=== PATIENT | female | born 1990 | race Caucasian/White ===

== ENCOUNTER 2022-07-23 13:45 | Outpatient (RCR) | payer BC, SELFPAY | END 2022-12-16 23:59 | disposition home or self-care (01) | PROVIDERS: PCP Family Medicine; Visit Provider Psychiatry & Neurology Neurology | DX: G43.109 Migraine with aura, not intractable, without status migrainosus (principal); Z51.89 Encounter for other specified aftercare | CPT/HCPCS: 97110; 97140; 97162 ==

== ENCOUNTER 2022-12-08 11:00 | Outpatient (RCR) | payer BC, SELFPAY | END 2023-02-17 08:46 | disposition home or self-care (01) | PROVIDERS: PCP Family Medicine; Visit Provider Family Medicine | DX: S50.12XD Contusion of left forearm, subsequent encounter (principal); Z51.89 Encounter for other specified aftercare | CPT/HCPCS: 97035; 97110; 97140; 97165; 97535; X5282 ==

== ENCOUNTER 2023-03-29 13:00 | Outpatient (RCR) | payer BC, SELFPAY | END 2023-07-27 23:59 | disposition home or self-care (01) | PROVIDERS: PCP Family Medicine; Visit Provider Family Medicine | DX: M25.522 Pain in left elbow (principal); S50.12XD Contusion of left forearm, subsequent encounter; M25.562 Pain in left knee; M25.561 Pain in right knee; R29.898 Other symptoms and signs involving the musculoskeletal system; Z51.89 Encounter for other specified aftercare | CPT/HCPCS: 97110; 97140; 97162; 97535 ==

== ENCOUNTER 2024-04-10 16:08 | Emergency (ER) | payer BC, SELFPAY ==
[2024-04-10 16:18] VITALS: BP 142/88; PULSE 94; RESP 18; TEMP 37.2; O2SAT 97; BMI 39.5
--- NOTE | 2024-04-10 17:49 | ED_ITS ---
HPI - General Adult General Date Seen: 04/10/24 Chief complaint: Unspecified Complaint, Adult Stated complaint: Upper L tooth infection Time Seen by Provider: 04/10/24 16:57 History of Present Illness HPI narrative: 34-year-old female presenting to the ER today for a tooth infection. She saw her dentist yesterday because the tooth with painful in the found infection. She was started amoxicillin yesterday. Today she has had increased swelling of her face up to her left eye. She has a past medical history of thyroid cancer, treated about a year ago, no longer on any treatment and thought to be and remission, Luis-Danlos syndrome, fibromyalgia, GERD, intense to have easy susceptibility to infections. However she has no known immune deficiency, diabetes. She has had some pain in her left maxillary premolar for the past month or 2. He had been present off and on. It gotten worse last week. She has been unable to see a dentist because most dentist do not take her form insurance. She was able to find a dentist who takes her insurance and saw her that dentist yesterday. She was told she has a dental infection and her dentist put her on amoxicillin 500 mg t.i.d.. She had 2 doses yesterday and 2 doses today but since then has noted increasing pain and new, increasing swelling involving her left cheek which is spread from her jaw all the way up to her lower eyelid. She is not having any fevers. No vomiting. No trouble chewing swallowing. She does have pain in her left upper jaw with chewing. Related Data Home Medications ?Medication ?Instructions ?Recorded ?Confirmed Daniela 04/10/24 Fish Oil 04/10/24 amitriptyline 25 mg tablet 25 mg PO QPM 04/10/24 04/10/24 amoxicillin 500 mg capsule mg PO 04/10/24 ashwagandha root extract 04/10/24 hydroxyzine HCl 25 mg tablet PO 04/10/24 levothyroxine 175 mcg tablet 175 mcg PO DAILY 04/10/24 04/10/24 propranolol 10 mg tablet 10 mg PO BID 04/10/24 04/10/24 rimegepant 75 mg disintegrating PO 04/10/24 tablet (Nurtec ODT) tizanidine 4 mg tablet 4 mg PO 3XD 04/10/24 04/10/24 Previous Rx's ?Medication ?Instructions ?Recorded clindamycin HCl 300 mg capsule 300 mg PO TID #30 caps 04/10/24 Allergies Allergy/AdvReac Type Severity Reaction Status Date / Time galcanezumab-gnlm Allergy Mild Anaphylaxis Verified 04/10/24 19:16 lactose Allergy Mild Abdominal Verified 04/10/24 19:16 Pain omeprazole Allergy Mild Anaphylaxis Verified 04/10/24 19:16 pantoprazole Allergy Mild Anaphylaxis Verified 04/10/24 19:16 PFSH PFS Social History Smoking Status: Unknown if ever smoked Do you use any of these nicotine containing products: None Second hand tobacco smoke exposure: No How often do you have a drink containing alcohol: never AUDIT-C Alcohol total score: 0 Non-prescribed substance use: denies use Exam Narrative: Exam Narrative: Constitutional: Appears well-developed and well-nourished. Alert. Conversant. Has visible swelling of her left cheek. Airway patent. Non toxic. HENT: Head: Atraumatic. Nose: Nose normal. Mouth/Throat: Oral mucosa is clear and moist. no trismus. Pharynx normal. Tongue normal. Lower jaw and submandibular tissues are normal. She is very sensitive with palpation of the maxillary left gums but I do not appreciate any palpable fluctuance or gingival abscess. Tonsils symmetric. No tonsillar enlargement, erythema, or exudate. Swelling of the left cheek without any palpable fluctuance there. Eyes: Conjunctivae normal. EOM normal. Pupils equal, round, and reactive to light. No scleral icterus. Neck: Normal range of motion. Neck supple. No tracheal deviation present. Cardiovascular: Normal rate, regular rhythm. No gallop. No friction rub. No murmur heard. Symmetric radial artery pulses Pulmonary/Chest: Effort normal. No stridor. No respiratory distress. No wheezes. No rales. No rhonchi . Musculoskeletal: RUE: Normal range of motion. No tenderness. No deformity LUE: Normal range of motion. No tenderness. No deformity RLE: Normal range of motion. No edema. No tenderness. No deformity LLE: Normal range of motion. No edema. No tenderness. No deformity Lymph: No cervical adenopathy. Neurological: Alert and oriented to person, place, and time. Normal strength. CN II-VII intact. No sensory deficit. GCS eye subscore is 4. GCS verbal subscore is 5. GCS motor subscore is 6. Normal coordination Skin: Skin is warm and dry. No rash noted. No pallor. Normal capillary refill. Psychiatric: Normal mood. Normal affect. Const: Vital Signs, click to edit/add: Vital Signs - 24 hr 04/10/24 16:18 Temperature 99.0 F Pulse Rate [Pulse Oximeter] 94 Respiratory Rate 18 Blood Pressure [Ri t Upper Arm] 142/88 H Pulse Oximetry 97 Oxygen Delivery Me thod Room Air Course Vital Signs Vital signs: Initial Vital Signs Temperature 99.0 F 04/10/24 16:18 Temperature Source Temporal Artery Scan 04/10/24 16:18 Pulse Rate 94 04/10/24 16:18 Pulse Rhythm Regular 04/10/24 16:18 Respiratory Rate 18 04/10/24 16:18 Blood Pressure 142/88 H 04/10/24 16:18 Blood Pressure Mean 106 H 04/10/24 16:18 Blood Pressure Position Sitting 04/10/24 16:18 Pulse Oximetry 97 04/10/24 16:18 Oxygen Delivery Method Room Air 04/10/24 16:18 Vital Signs Temperature 99.0 F 04/10/24 16:18 Pulse Rate 94 04/10/24 16:18 Respiratory Rate 18 04/10/24 16:18 Blood Pressure 142/88 H 04/10/24 16:18 Pulse Oximetry 97 04/10/24 16:18 Oxygen Delivery Method Room Air 04/10/24 16:18 Temperature 99.0 F 04/10/24 16:18 Pulse Rate 94 04/10/24 16:18 Respiratory Rate 18 04/10/24 16:18 Blood Pressure 142/88 H 04/10/24 16:18 Pulse Oximetry 97 04/10/24 16:18 Oxygen Delivery Method Room Air 04/10/24 16:18 Medications Administered Medications: Discontinued Medications Generic Name Dose Route Start Last Admin Trade Name Freq PRN Reason Stop Dose Admin Hydrocodone Bitart/Acetaminophen 1 tab 04/10/24 18:10 04/10/24 18:34 Hydrocodone-Acetamin 5-325 Mg 1 Tab PO 04/10/24 18:11 Not Given ONCE ONE Clindamycin HCl 300 mg 04/10/24 18:11 04/10/24 18:33 Clindamycin 150 Mg Capsule PO 04/10/24 18:12 300 mg ONCE ONE Administration Oxycodone HCl 5 mg 04/10/24 18:30 04/10/24 18:33 Oxycodone 5 Mg Tablet PO 04/10/24 18:31 5 mg ONCE ONE Administration Medical Decision Making MDM Narrative Medical decision making narrative: This patient presents with a a toothache affecting her left maxillary premolar that is been present for a month, now getting worse for the past several days with new swelling of her left cheek. Clinical presentation is consistent with left facial cellulitis. Differential would also include buccal space abscess, allergic reaction, bony erosive disease, periapical abscess, among others. Clinically there is no abscess detected around the tooth amenable to incision and drainage. However we did obtain CT scan to look for buccal space abscess given the amount of cheek swelling she has. CT scan does say that there may be a small subperiosteal abscess. I am not able to appreciate this clinically and therefore not able to drain it here in the ER. There is no evidence of buccinator/canine space infections, or Steve's angina. There are no posterior pharyngeal space infections detected. Will have her switch from amoxicillin to clindamycin. First dose administered here in the ER. Prescription for Percocet for pain (opiate and sedation precautions reviewed) through [facility] tablets. Follow up with a dentist/day haul or farm charter bus driver in the coming days is indicated for further work up and treatment. Instructions for return to the ER were reviewed with the patient. Lab Data Labs: Lab Results 04/10/24 Range/Units 18:24 WBC 10.73 (4.50-11.00) K/uL RBC 4.32 (4.00-5.20) m/uL Hgb 12.9 (12.0-16.0) gm/dL Hct 38.4 (33.0-51.0) % MCV 89 (80-100) fL MCH 30 (26-34) pg MCHC 34 (32-36) gm/dL RDW Coeff of Chinedu 12.3 (11.5-15.5) % Plt Count 288 (140-440) K/uL Neut % (Auto) 71.5 (42.0-72.0) % Lymph % (Auto) 19.5 L (20-44) % [place] % (Auto) 7.6 (0.0-11.0) % Eos % (Auto) 1.0 (0.0-7.0) % Baso % (Auto) 0.2 (0.0-3.0) % Neut # (Auto) 7.67 H (1.7-7.0) K/uL Lymph # (Auto) 2.10 (0.90-2.90) K/uL [place] # (Auto) 0.80 (0.00-0.90) K/UL Eos # (Auto) 0.11 (0.00-0.50) K/uL Baso # (Auto) 0.02 (0.00-0.30) K/uL Abs Immat Gran (auto) 0.02 (0.00-0.30) K/uL Imm/Tot Granulo (auto) 0.2 % Sodium 135 (135-149) mmol/L Potassium 4.4 (3.6-5.1) mmol/L Chloride 101 (96-114) mmol/L Carbon Dioxide 23 (20-32) mmol/L Anion Gap 11 (7-15) mEq/L BUN 11 (5-24) mg/dL Creatinine 0.7 (0.5-1.5) mg/dL Estimated Creat Clear 105.01 Estimated GFR 116 ml/min Glucose 99 (60-115) mg/dL Calcium 8.9 (8.4-10.6) mg/dL HCG, Qual Negative (Negative) Imaging Data CT neck with contrast: Attestation: I have reviewed the pertinent imaging results. Radiologist's impression: Impression: 1. Small subperiosteal abscess anterior to the left maxilla communicating with a periapical lucency about the left 2nd maxillary premolar tooth. 2. Mild diffuse infiltration of the soft tissues in the overlying face and periorbital region. 3. Small fluid level in the left maxillary sinus indicating acute sinus disease. 4. Poor visualization of the thyroid gland which may be surgically absent. Discharge Plan Discharge Clinical Impression: Dental infection, Cellulitis of face Instructions: Dental Abscess (ED), Cellulitis (ED) Additional Instructions: As we discussed, stop the amoxicillin and start the new antibiotic (called clindamycin). Take your next dose tomorrow morning. Monitor your face carefully. If you have worsening swelling, high fevers, trouble opening and closing your mouth, or other worsening symptoms, please see your dentist or come back to the ER right away. Use caution with pain killers such as Percocet because they cause drowsiness, dizziness, constipation, and can be addictive. Do not drive a car or operate machinery for 6 hours after taking Percocet. Prescriptions: New clindamycin HCl 300 mg capsule 300 mg PO TID Qty: 30 0RF No Action amoxicillin 500 mg capsule PO levothyroxine 175 mcg tablet 175 mcg PO DAILY tizanidine 4 mg tablet 4 mg PO 3XD propranolol 10 mg tablet 10 mg PO BID amitriptyline 25 mg tablet 25 mg PO QPM hydroxyzine HCl 25 mg tablet PO Nurtec ODT 75 mg tablet,disintegrating PO Daniela ashwagandha root extract Fish Oil Follow Up/Referrals: Estrella Otto DO [Staff Physician] - Stand Alone Forms: [employer] Medical Info Instructions
--- NOTE | 2024-04-10 18:10 | CRLHL7_ITS ---
For Patients: As a result of the Century Cures Act, medical imaging exams and procedure reports are released immediately into your electronic medical record. You may view this report before your referring provider. If you have questions, please contact your health care provider. Indication: Left maxillary tooth ache, left cheek swelling. Technique: Contrast-enhanced CT of the neck with multiplanar reconstruction. 120 cc Isovue 370 iodinated intravenous contrast was utilized. Comparison: None available. Findings: Small subperiosteal abscess anterior to the left maxilla measuring up to 1.8 cm (series 3, image 21), likely extending from a periapical lucency about the left 2nd maxillary premolar tooth (series 3, image 25). Mild diffuse infiltration of the soft tissues in the overlying face and periorbital region. No suspicious mucosal based mass or enhancement. No pathologically enlarged cervical lymph nodes. Normal parotid and submandibular glands. The thyroid gland is not well visualized and may be surgically absent. Clear lung apices. Unremarkable osseous structures. The orbits and imaged intracranial structures are within normal limits. A small fluid level is noted in the left maxillary sinus. Multiple maxillary retention cysts are noted. Impression: 1. Small subperiosteal abscess anterior to the left maxilla communicating with a periapical lucency about the left 2nd maxillary premolar tooth. 2. Mild diffuse infiltration of the soft tissues in the overlying face and periorbital region. 3. Small fluid level in the left maxillary sinus indicating acute sinus disease. 4. Poor visualization of the thyroid gland which may be surgically absent. Please note that all CT scans at this facility use dose modulation, iterative reconstruction, and/or weight-based dosing when appropriate to reduce radiation dose to as low as reasonably achievable. Dictated by Yeison Toscano MD @ 04/10/2024 8:10:54 PM (Electronically Signed)
--- OUTSIDE RECORDS SUMMARY | 2024-04-10 18:21 | XMS_ITS | Referral Summary ---
Author Organization [facility] Address [address] [place] [id number] Phone Care Team Providers Care Glassware Selector Name Role Phone Unavailable Primary Care Provider Unavailabl e Source Comments [employer] is fully rolled out on [email or web address]. Last update 11/01/08.[employer] Allergies Active Allergy Reactions Criticality Noted Date Comments Omeprazole Shortness of Breath High 09/28/2023 Social History Tobacco Use Types Packs/Day Years Used Date Smoking Tobacco: Never Smokeless Tobacco: Never Tobacco Cessation:Counseling Given: Not Answered Alcohol Use Standard Drinks/Week Comments Never 0 (1 standard drink = 0.6 oz pur e alcohol) Comments Unknown Sex and Gender Information Value Date Recorded Sex Assigned at Female 07/12/2023 3:33 PM [employer] Legal Sex Female 3:11 PM [employer] Gender Identity Female 07/12/2023 3:33 PM [employer] Sexual Orientation Straight 07/12/2023 3: 33 PM [employer] Last Filed Vital Signs Vital Sign Reading Time Taken Comments Blood Pressure 105/66 09/28/2023 11:46 AM CDT Pulse 57 09/28/2023 11:46 AM CDT Temperature 36.3 ??C (97.4 ??F) 09/28/2023 11:46 AM C DT Respiratory Rate - - Oxygen Saturation - - Inhaled Oxygen Concentration - - Weight 112.5 kg (248 lb) 09/28/2023 11:46 AM CDT Height 161.7 cm (5' 3.66) 09/28/2023 11:46 AM C DT Body Mass Index 43.02 09/28/2023 11:46 AM CDT Plan of Treatment Not on file Insurance [facility]
--- OUTSIDE RECORDS SUMMARY | 2024-04-10 18:21 | XMS_ITS | Clinical Summary ---
Author Organization [facility] Address [address] [place] [address] Care Team Providers Care Hydraulic Punch Press Operator Name Role Phone Mariana Bryan DO Primary Care Provider [phone] Wan Syed MD Unavailable [phone] Allergies Active Allergy Reactions Criticality Noted Date Comments Cat Dander Itching,Runny Nose 1989 Dust/Dust Mites (Sammy) Itching,Runny Nose 2021 Galcanezumab-Gnlm Hives,Itching,Rash 07/09/2022 Lactase Vomiting 02/16/2017 Gi upset. Lactose Abdominal pain,Diarrhea,Hives,Rash,Vom iting 05/18/2022 Omeprazole Shortness of breath,Difficulty breathing 01/23/2020 Pantoprazole Shortness of breath,Difficulty breathing 06/30/2020 Pollen Extracts Hives,Itching,Runny Nose 2014 Year long Medications Medication Sig Dispensed Refills Start Date End Date Status budesonide, conc: 0.5mg/2mL, (PULMICORT) 0.5 mg/2 mL Inhl nebulizer suspension Inhale 2 mL (0.5 mg) twice a day. 04/28/2022 Active Cholecalciferol, Vitamin D3, 50 mcg (2,000 unit) oral capsule Take 2,000 Units by mouth Daily. 03/02/2022 Active famotidine (PEPCID) 20 mg oral tablet 03/11/2020 Active fexofenadine (KARLOS ALLERGY) 180 mg oral tablet 06/12/2001 Active fluticasone (FLONASE) 50 mcg/actuation nasal spray Instill 1 spray into each nostril Daily. 05/09/2020 Active hydrOXYzine HCl (ATARAX) 25 mg oral tablet Take by mouth. 09/12/2021 Active albuterol-ipratropiu m, conc: 3-0.5mg/3mL, (DUO-NEB) Inhl nebulizer solution Nebulize 3 mL. 04/10/2022 Ac tive lysine 1,000 mg oral Tab 09/18/2019 Active Magnesium Oxide 250 mg magnesium oral Tab Take 250 mg by mouth Daily. 03/02/2022 Active tiZANidine (ZANAFLEX) 4 mg oral tabletIndications:Ce rvicalgia,Myofascial pain TAKE ONE-HALF TABLET BY MOUTH AT BEDTIME FOR 7 DAYS, THEN TAKE ONE TABLET AT BEDTIME 30 tablet 3 07/10/2023 Active propranoloL (INDERAL) 10 mg oral tablet Take 1 tablet (10 mg) by mouth twice a day. 02/05/2023 Active mirtazapine (REMERON) 7.5 mg oral tablet Take 1 tablet (7.5 mg) by mouth at bedtime. 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 Allen ([facility]) S/P thyroidectomy 11/02/2022 Other acute postprocedural pain 05/18/2022 S/P lumbar spinal fusion 05/18/2022 Irritable bowel syndrome 01/08/2022 Failed back syndrome of lumbar spine 12/15/2021 Absence of pigment in hair 02/01/2020 Depressive disorder 09/29/2011 Fibromyalgia 09/29/2011 Myalgia 09/29/2011 Overview (05/18/2022): Myalgia and myositis, unspecified Gastritis 01/22/2011 Displacement of lumbar inter vertebral disc without myelopathy 04/18/2009 Spondylolisthesis, grade 2 04/18/2009 Spondylolysis 04/18/2009 Allergic rhinitis 12/06/2008 Hypothyroidism 08/31/2006 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 Encounters Date Type Department Care Team Description 03/12/2024 Community Care Management [facility] [address] [place] [address] [place] [address] Kalyani Cordova 03/08/2024 9:45 AM CDT Office Visit [facility] - [address] [place] [address] Wan ySed MD Intractable chronic migraine with aura and without status migrainosus (Primary Dx); Neck pain from Last 3 Months Immunizations Name Administration Dates Next Due HPV Quadrivalent 12/07/2013,10/04/2012, 3 Influenza (Fluzone MDV 2012-) 6-35 Mos 011 Pfizer 12+ Yrs Bivalent COVI D Vaccine (finn cap) 03/04/2022 SPIKEVAX (Moderna) 12+ Yrs M onovalent COVID Vaccine (credit product analyst) 05/19/2021,09/21/2020,08/24/2020 Td adult absorbed PF (2 Lf) 10/16/2002 Tdap 01/29/2021,01/20/2011 Family History Medical History Relation Comments Asthma Father Diabetes Father High Blood Pressure Father High Cholesterol Father Thyroid Disease Father Alzheimer's Disease Maternal Grandfather Heart Disease Maternal Grandfather High Blood Pressure Maternal Grandfather Heart Disease Maternal Grandmother High Blood Pressure Maternal Grandmother Non-Hodgkins Lymphoma Maternal Grandmother Asthma Mother Migraines Mother Skin Melanoma Mother High Blood Pressure Paternal Grandfather Lung Cancer Paternal Grandfather Diabetes Paternal Grandmother High Blood Pressure Paternal Grandmother Lung Cancer Paternal Grandmother Migraines Paternal Grandmother Skin Melanoma Paternal Grandmother Asthma Sister Migraines Sister Relation Status Comments Father Alive Maternal Grandfather Maternal Grandmother Mother Alive Paternal Grandfather Paternal Grandmother Sister Social History Tobacco Use Types Packs/Day Years Used Date Smoking Tobacco: Former Cigarettes Q uit: 2015 Smokeless Tobacco: Never Tobacco Cessation:Counseling Given: No Alcohol Use Standard Drinks/Week Comments Not Currently 0 (1 standard drink = 0.6 oz pur e alcohol) Sex and Gender Information Value Date Recorded Sex Assigned at Female 05/10/2022 2:08 PM ORDER CLERK Gender Identity Female 05/10/2022 2:08 PM ORDER CLERK Sexual Orientation Straight 05/10/2022 2: 08 PM ORDER CLERK Last Filed Vital Signs Vital Sign Reading Time Taken Comments Blood Pressure 122/82 05/18/2022 2:10 PM ORDER CLERK Pulse 80 05/18/2022 2:10 PM ORDER CLERK Temperature - - Respiratory Rate 14 09/23/2023 11:04 AM CDT Oxygen Saturation - - Inhaled Oxygen Concentration - - Weight 111.1 kg (245 lb) 09/23/2023 11:04 AM CDT Height 167.6 cm (5' 6) 09/23/2023 11:04 AM CDT Body Mass Index 39.54 09/23/2023 11:04 AM CDT Plan of Treatment Health Maintenance Due Date Last Done Comments Diabetes Screening 1989 Pap Smear 1989 Anxiety Screening (FREDDY-2) 1990 Depression Follow-Up (PHQ-9) 1990 COVID-19 Vaccine (5 - 2023-2 5 season) 2024 03/04/2022, 05/19/2021, 09/21/2020, Additional history exists Influenza Vaccine (#1) 2024 05/18/2011 Thyroid-Stimulating Hormone (TSH) 07/05/2024 07/05/2023, 02/22/2022, 07/30/2021, Additional history exists Adult Tetanus Booster 01/29/2031 01/29/2021 , 01/20/2011, 10/16/2002 RSV Vaccines (1 - 1-dose 75+ series) 02/03/2064 Hepatitis C Screening Completed 12/30/2021 Pneumococcal <65 Completed 03/21/2023 Care Teams Hydraulic Punch Press Operator Relationship Specialty Start Date End Date Mariana Bryan DO [address] [place] [address] PCP - General Family Medicine - 02/25/22 Wan Syed MD [address] [facility] [address] [place] [address] Neurology 04/02/22
--- OUTSIDE RECORDS SUMMARY | 2024-04-10 18:21 | XMS_ITS | Clinical Summary ---
Author Organization [employer] [facility] Address [place], [place] [address] Care Team Providers Care Blow Mold Machine Operator Name Role Phone Mariana Bryan Primary Care Provider [phone] Johnna Ram DIESEL RETROFIT DESIGNER Unavailable [phone] Allergies Active Allergy Reactions Criticality Noted Date Comments Cat Dander Itching,Runny Nose 1989 Lactase GI Upset 02/16/2017 Gi upset. Dust Mites Itching,Runny Nose 1989 Galcanezumab-Gnlm Hives 07/09/2022 Lactose Diarrhea,Nausea And Vomiting 014 Omeprazole Respiratory Distress ,Shortness Of Breath 01/23/2020 Pantoprazole Respiratory Distress ,Shortness Of Breath 06/30/2020 Pollen Extracts Runny Nose 07/02/2014 Year long Medications Medication Sig Dispensed Refills Start Date End Date Status fexofenadine (KARLOS) 180 mg tablet TAKE ONE TABLET BY MOUTH EVERY DAY 30 tablet 5 11/28/19 11 Active famotidine (PEPCID) 20 mg tabletIndications:Hi story of gastroesophageal reflux (GERD) Take 1 tablet by mouth 2 times daily. 180 tablet 3 04/30/20 19 Active ibuprofen (AdviL) 200 mg tablet 600 mg every four hours daily 0 03/02/20 22 Active aspirin-acetaminophe n-caffeine (Excedrin) 250-250-65 mg Take 1 Tablet by mouth every 6 hours if needed for Headache. Max acetaminophen dose: 4000mg in 24 hrs. 0 03/02/20 22 Active albuterol (PROVENTIL) 0.083 % neb solutionIndications: Cough, unspecified type,Pneumonia due to infectious organism, unspecified laterality, unspecified part of lung Inhale 3 mL (2.5 mg) via a nebulizer every 4 hours if needed for Cough. 360 mL 04/28/20 22 Active albuterol-ipratropiu m (DUONEB) (2.5-0.5 mg) in 3 mL NEBULIZATION solutionIndications: Pneumonia of left upper lobe due to infectious organism Inhale 3 mL via a nebulizer 4 times daily if needed for Shortness Of Breath or Wheezing. 180 mL 11 04/28/20 22 Active tiZANidine (ZANAFLEX) 4 mg tablet 05/18/20 22 Active triamcinolone (ARISTOCORT; KENALOG) 0.1 % creamIndications:Con tact dermatitis due to drugs in contact with skin, unspecified contact dermatitis type Apply topically to affected area(s) three times daily. 80 g 06/09/19 23 Active albuterol HFA (PRO-AIR; VENTOLIN; PROVENTIL) 90 mcg/actuation inhalerIndications:C hronic cough Inhale 1-2 Puffs by mouth every 4 hours if needed for Shortness Of Breath or Wheezing. 1 Each 06/09/19 23 Active ashwagandha root extract 300 mg cap Take 2 Capsules by mouth. 0 01/22/20 23 Active fluticasone (50 mcg per actuation) nasal solution (FLONASE)Indications :Hayfever USE 1 SPRAY INTO THE AFFECTED NOSTRIL(S) ONCE DAILY 48 g 2 03/30/20 23 Active magnesium oxide 250 mg magnesium tabletIndications:Ot her chronic pain Take 1 Tablet (250 mg) by mouth once daily. 90 Tablet 3 04/04/20 23 Active riboflavin, vitamin B2, (VITAMIN B2) 100 mg tabletIndications:He adache, chronic daily Take 4 Tablets (400 mg) by mouth once daily. 360 Tablet 3 05/24/20 23 Active levothyroxine (SYNTHROID) 175 mcg tabletIndications:Hy pothyroidism due to Mami's thyroiditis Take 1 Tablet (175 mcg) by mouth once daily. 90 Tablet 3 07/07/19 24 Active cholecalciferol (Dialyvite Vitamin D) 5,000 unit capsuleIndications:V itamin D deficiency Take 1 capsule by mouth once daily with food. 90 Capsule 2 10/27/19 24 Active rimegepant (NURTEC) 75 mg orally disintegrating tablet Take 75 mg by mouth once daily if needed for Headache. 11/18/19 24 Active amitriptyline (ELAVIL) 25 mg tabletIndications:Po lyarthralgia,Fibromy algia Take 1 Tablet (25 mg) by mouth once daily. 60 Tablet 1 03/13/20 24 Active hydrOXYzine HCL (ATARAX) 25 mg tabletIndications:Ge neralized anxiety disorder TAKE ONE TABLET BY MOUTH EVERY 6 HOURS IF NEEDED FOR ANXIETY 90 Tablet 1 03/22/20 24 Active propranoloL (INDERAL) 10 mg tabletIndications:PO TS (postural orthostatic tachycardia syndrome) TAKE ONE TABLET BY MOUTH TWICE A DAY 180 Tablet 03/22/20 24 Active propranoloL (INDERAL) 10 mg tabletIndications:PO TS (postural orthostatic tachycardia syndrome) Take 1 Tablet (10 mg) by mouth two times daily. 180 Tablet 3 03/21/20 23 024 Discontinued hydrOXYzine HCL (ATARAX) 25 mg tabletIndications:Ge neralized anxiety disorder Take 1 Tablet (25 mg) by mouth every 6 hours if needed for Anxiety. 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 Acute postoperative pain Acute postoperative abdominal pain S/P lumbar spinal fusion Resolved Problems Problem Noted Date Diagnosed Date Resolved Date ASCUS of cervix with negative high risk HPV 06/01/2016 02/19/2021 Overview (06/14/2016): 06/01/2016 - Cotesting in 3 years (DUE: 05/2019) Alcohol abuse, continuous 02/29/2008 Depressive disorder, not elsewhere classified 08/16/2022 Encounters Date Type Department Care Team Description 04/08/2024 Travel 03/28/2024 11:30 AM CDT Orders Only [facility] [address] [place] [address] Lab 03/28/2024 Telephone [facility] [id number] [place] [address] Aurelio Aragon MD ACC Order Request (referral needs update.) 03/28/2024 Travel 03/27/2024 Travel 03/26/2024 1:00 PM CDT Procedure Only [facility] [address] [place] [address] Zaria Ridley L Ac Acupuncture 03/25/2024 Travel 03/20/2024 12:00 PM CDT Ancillary Procedure [facility] [address] [place] [address] 03/19/2024 Refill [facility] [address] [place] [address] Mariana Bryan DO Refill Request (Hydroxyzine Hcl, Propranolol) 03/19/2024 Travel 03/19/2024 Orders Only [facility] [id number] [place] [address] Aurelio Aragon MD <No scans attached> 03/15/2024 1:00 PM CDT Procedure Only [facility] [address] [place] [address] Zaria Ridley L Ac Acupuncture 03/15/2024 Travel 03/13/2024 3:00 PM CDT Ancillary Procedure [facility] [address] [facility] [address] [place] [address] 03/13/2024 2:55 PM CDT Ancillary Procedure [facility] [address] [facility] [address] [place] [address] 03/13/2024 2:50 PM CDT Ancillary Procedure [facility] [address] [facility] [address] [place] [address] 03/13/2024 1:30 PM CDT Office Visit [facility] [address] [place] [address] Aurelio Aragon MD Consult 03/13/2024 Travel 03/12/2024 Travel 03/11/2024 Travel 03/07/2024 9:45 AM CDT Ancillary Procedure [facility] [address] [place] [address] 03/06/2024 Travel 03/05/2024 Travel 03/02/2024 11:00 AM CDT Telemedicine [facility] [address] [facility] [address] [place] [address] Johnna Ram NP Follow Up (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/Vitals is not taking) 03/01/2024 Travel 02/27/2024 1:00 PM CDT Procedure Only [facility] [address] [place] [address] Zaria Ridley L Ac Acupuncture 02/27/2024 Travel 02/26/2024 Travel 02/23/2024 1:15 PM CDT Nurse/Clinic Staff Only [facility] [address] [place] [address] Immunization/Injec tion (DEPO-PROVERA INJECTION ) 02/23/2024 Travel 02/20/2024 1:00 PM CDT Procedure Only [facility] [address] [facility] [place] [address] Zaria Ridley L Ac Acupuncture 02/20/2024 Travel 02/16/2024 5:00 PM CDT Telemedicine [facility] [address] [facility] [address] [place] [address] Chelle Green, EDENILSON Follow Up; Telehealth 02/16/2024 Travel 02/12/2024 Travel 02/09/2024 1:30 PM CDT Procedure Only [facility] [address] [place] [address] Zaria Ridley L Ac Acupuncture 02/09/2024 Travel 2024 12:47 PM CDT - 2024 11:59 PM CDT Hospital Encounter [facility] [place] [address] [facility] [address] [place] [address] Nena Roque MBBS Guist, Angela M, PT Pelvic floor dysfunction (Primary Dx); Pelvic pain 2024 Travel 01/23/2024 Online Questionnaire [facility]Vis[facility] [address] [place] [address] Davy Rowell MD 01/16/2024 Travel 01/12/2024 1:00 PM CDT Procedure Only [facility] [address] [facility] [address] Zaria Ridley L Ac Acupuncture 01/12/2024 Travel 01/09/2024 Telephone [facility] [address] [place] [address] Mariana Bryan DO Letter from Last 3 Months Immunizations Name Administration Dates Next Due COVID-19 vaccine (Pfizer-Bio NTech 30mcg/0.3mL) 12YO+ BIVALENT PF, MDV 03/03/2022 Human Papilloma Virus Vaccine 12/07/2013, 013,08/01/2012 Influenza, High-dose Inactivated 05/18/2011 Influenza, IIV3 (Age >=3 years) 05/18/2011 Pneumococcal Conj 20-valent (Prevnar 20) 023 Td (Age >=7 Years) 10/16/2002 Tdap 01/29/2021,01/20/2011 Family History Medical History Relation Name Comments Allergies Brother Asthma Brother Psychiatric illness Brother Depressi on Allergies Father Asthma Father Cancer-breast Maternal Aunt Unknown Maternal Grandfather Unknown Maternal Grandmother Allergies Mother Asthma Mother Other Mother skin cancer Psychiatric illness Mother Depressi on and Anxiety Thyroid Disease Mother Unknown Paternal Grandfather Unknown Paternal Grandmother breast cancer Allergies Sister Asthma Sister Psychiatric illness Sister Depressi on Anesthesia Problem No Family History Blood Disease No Family History Relation Name Status Comments Brother Father Alive Maternal Aunt Maternal Grandfather Maternal Grandmother Mother Alive Paternal Grandfather Paternal Grandmother Sister Social History Tobacco Use Types Packs/Day Years Used Date Smoking Tobacco: Former Cigarettes 0.5 3 0 09/27/2005 - 09/27/2008 Smokeless Tobacco: Never Tobacco Cessation:Counseling Given: No Comments:second hand exposure noted 04/07/2019 Alcohol Use Standard Drinks/Week Comments Not Currently 0 (1 standard drink = 0.6 oz pur e alcohol) 1x per year PHQ-2 Answer Date Recorded PHQ-2 TOTAL SCORE 4 07/01/2023 Social Connections Answer Date Recorded Do you often feel lonely or isolated from those around you? 4 06/27/2023 Financial Resource Strain Answer Date R ecorded Difficulty of Paying Living Expenses 2 06/27/2023 Difficulty of Paying Living Expenses 1 06/27/2023 Food Insecurity Answer Date Recorded Do you worry your food will run out before you are able to buy more? 2 06/27/2023 Transportation Needs Answer Date Record ed Does lack of transportation keep you from medica l appointments? 1 06/27/2023 Does lack of transportation keep you from work, meetings or getting things that you need? 1 06/27/2023 Housing Stability Answer Date Recorded What is your housing situation today? 1 06/27/2023 Sex and Gender Information Value Date Recorded Sex Assigned at Female 03/28/2020 2:51 PM CDT Gender Identity Female 03/28/2020 2:51 PM CDT Sexual Orientation Straight 03/28/2020 2: 51 PM CDT Obstetrics History Para Term AB IAB SAB Ectopic Multiple Livin g Live Births 0 0 0 0 0 0 0 0 0 0 Last Filed Vital Signs Vital Sign Reading Time Taken Comments Blood Pressure 120/88 03/13/2024 1:24 PM CDT Pulse 78 03/13/2024 1:24 PM CDT Temperature 36.5 ??C (97.7 ??F) 05/04/2023 1:09 PM CS T Respiratory Rate 14 05/04/2023 1:09 PM LABEL MACHINE OPERATOR Oxygen Saturation 98% 03/13/2024 1:24 PM CDT Inhaled Oxygen Concentration - - Weight 112.4 kg (247 lb 12.8 oz) 03/13/2024 1:24 PM CDT Height 166.8 cm (5' 5.67) 03/13/2024 1:24 PM CD T Body Mass Index 40.4 03/13/2024 1:24 PM CDT Plan of Treatment Upcoming Encounters Date Type Department Care Team (Late st Contact Info) Description 04/16/2024 10:00 AM LABEL MACHINE OPERATOR Procedure Only [facility] [address] [place] [address] Zaria Ridley L Ac [address] [place] [address] 04/17/2024 1:00 PM LABEL MACHINE OPERATOR Office Visit [facility] [address] [place] [address] [place] [address] [place] [address] [place] [address] 04/23/2024 1:00 PM LABEL MACHINE OPERATOR Procedure Only [facility] [address] [place] [address] Zaria Ridley L Ac [address] [place] [address] 05/03/2024 1:30 PM LABEL MACHINE OPERATOR Telemedicine [facility] [address] [place] [phone] Chelle Green, DIESEL RETROFIT DESIGNER [address] [facility] [address] [place] [address] 05/07/2024 1:00 PM LABEL MACHINE OPERATOR Procedure Only [facility] [address] [place] [address] Zaria Ridley L Ac [address] [place] [address] 05/14/2024 1:00 PM LABEL MACHINE OPERATOR Procedure Only [facility] [address] [place] [address] Zaria Ridley L Ac [address] [place] [address] 05/21/2024 1:00 PM LABEL MACHINE OPERATOR Procedure Only [facility] [address] [place] [address] Zaria Ridley L Ac [address] [place] [address] 05/28/2024 1:00 PM LABEL MACHINE OPERATOR Procedure Only [facility] [address] [place] [address] Zaria Ridley L Ac [address] [place] [address] Scheduled Procedures Name Priority Associated Diagnoses Date/Ti me SURGICAL PROCEDURE (TYPE PRO CEDURE DESCRIPTION BELOW) Other chronic pain Health Maintenance Due Date Last Done Comments COVID-19 vaccine series ( season) 2024 03/03/2022, 05/19/2021, 09/21/2020, Additional history exists Influenza for age 9-49 01/29/2024 05/18/2011 Depression screening for age 12+ 07/05/2024 07/05/2023, 07/04/2023, 07/01/2023, Additional history exists BMI (ht and wt on same day) for age 18+ 03/13/2025 03/13/2024, 07/01/2023, 04/13/2023, Additional history exists Pap test for age 21-65 01/29/2026 , 01/29/2021, 06/01/2016, Additional history exists Tetanus booster 01/29/2031 01/29/2021, 12/29, 10/16/2002 HIV for age 15-65 Completed 01/29/2021 Tdap Completed 01/29/2021, 01/20/2011 Pneumococcal series for age 6-64 Aged Out 03/21/2023 No longer eligible based on patient's age to complete this topic Hepatitis C screening for age 18-79 Completed 03/13/2024, 12/30/2021 Medical Devices Implanted Type Area Regional Sales Associate Device Identifier Shelf Expiration Date Model / Serial / Lot Casa Lmbr 60x5.5mm Tsrh 3d Cvd Titnm - [id number] Implanted:Qty: 2 on 03/15/2018 by Jose Juan Herebrt MD at [facility] Spine Implants N/A: Spine Medtronic Spine/Ortho [id number]# / / Mar-1688-Cp - [id number] Implanted:Qty: 1 on 07/03/2014 by Troy Allison DPM at [facility] Right: Foot [employer] AR-1688-C P / / Description:implant system i nternal brace ligament augmentation repair #[id number] Screw Sm Joint 4x32mm Asnis Iii Cnnltd Part Thread Titnm - [id number] Implanted:Qty: 1 on 07/03/2014 by Troy Allison DPM at [facility] Right: Foot [employer] [id number]# / / Description:Load # 2-4 06/03 Set Screw Lmbr Tsrh 3dx - [id number] Implanted:Qty: 6 on 03/15/2018 by Jose Juan Herbert MD at [facility] N/A: Spine Medtronic Spine/Ortho [id number]# / / Cnnctr Lmbr Tsrh 3dx Offsettitnm - [id number] Implanted:Qty: 4 on 03/15/2018 by Jose Juan Herbert MD at [facility] N/A: Spine Medtronic Spine/Ortho [id number]# / / Cnnctr Lmbr Md Tsrh 3dx Offsettitnm - [id number] Implanted:Qty: 1 on 03/15/2018 by Jose Juan Herbert MD at [facility] N/A: Spine Medtronic Spine/Ortho [id number]# / / Cnnctr Lmbr Tsrh 3dx Offsettitnm - [id number] Implanted:Qty: 1 on 03/15/2018 by Jose Juan Herbert MD at [facility] N/A: Spine Medtronic Spine/Ortho [id number]# / / Screw Lmbr Post 6.5x45mm Tsrh 3dx Og Thin Va - [id number] Implanted:Qty: 2 on 03/15/2018 by Jose Juan Herbert MD at [facility] N/A: Spine Medtronic Spine/Ortho [id number]# / / Screw Lmbr Post 6.5x50mm Tsrh 3dx Og Thin Va - [id number] Implanted:Qty: 1 on 03/15/2018 by Jose Juan Herbert MD at [facility] N/A: Spine Medtronic Spine/Ortho [id number]# / / Screw Lmbr Post 6.5x55mm Tsrh 3dx Og Thin Va - [id number] Implanted:Qty: 1 on 03/15/2018 by Jose Juan Herbert MD at [facility] N/A: Spine Medtronic Spine/Ortho [id number]# / / Screw Lmbr Post 7.5x45mm Tsrh 3dx Og Thin Va - [id number] Implanted:Qty: 2 on 03/15/2018 by Jose Juan Herbert MD at [facility] N/A: Spine Medtronic Spine/Ortho [id number]# / / Screw Lmbr Ant 6.3c016wx Pyramid Plus Va Lowpro - [id number] Implanted:Qty: 1 on 03/15/2018 by Jose Juan Herbert MD at [facility] N/A: Spine Medtronic Spine/Ortho [id number]# / / Washer 17mm - [id number] Implanted:Qty: 1 on 03/15/2018 by Jose Juan Herbert MD at [facility] N/A: Spine Medtronic Spine/Ortho [id number]# / / [id number] one Matrix 5cc Ventura Plus Paste Dbm Implanted:Qty: 1 on 03/15/2018 by Jose Juan Herbert MD at [facility] Explanted:at [facility] (Quantity not on file) N/A: Spine Medtronic Spine/Ortho 07/21/2019 [id number]# / [id number] / [id number] one 1-4mm 30cc Medtronic Chips Canclls Freeze Dried Implanted:Qty: 1 on 03/15/2018 by Jose Juan Herbert MD at [facility] Explanted:at [facility] (Quantity not on file) N/A: Spine Medtronic Spine/Ortho 09/03/2022 [id number]# / [id number] / [id number] one 1-4mm 30cc Medtronic Chips Canclls Freeze Dried Implanted:Qty: 1 on 03/15/2018 by Jose Juan Herbert MD at [facility] Explanted:at [facility] (Quantity not on file) N/A: Spine Medtronic Spine/Ortho 09/04/2022 [id number]# / [id number] / Spacer Lmbr 14mm 8deg Perimeter Alif Peek - [id number] Implanted:Qty: 1 on 03/15/2018 by Jose Juan Herbert MD at [facility] N/A: Spine Medtronic Spine/Ortho 07/05/2025 [id number]# / / 65FC Spacer Lmbr 12mm 8deg Perimeter Alif Peek - [id number] Implanted:Qty: 1 on 03/15/2018 by Jose Juan Herbert MD at [facility] N/A: Spine Medtronic Spine/Ortho 10/19/2025 [id number]# / / 51FT Cnnctr Lmbr 36-39mmx5.5mm X10 Crosslink Variable - [id number] Implanted:Qty: 1 on 03/15/2018 by Jose Juan Herbert MD at [facility] N/A: Spine Medtronic Spine/Ortho [id number]# / / Explanted Type Area Regional Sales Associate Device Identifier Shelf Expiration Date Model / Serial / Lot Guidewire Thrd 1.4x1.5mm - [id number] Explanted:Qty: 1 on 07/03/2014 by Troy Allison DPM at [facility] Right: Foot [employer] [id number]# / / Description:Load 2 4 015 Procedures Procedure Name Priority Date/Time Associated Diagnosis Comments DRVVT CONFIRM ([facility] REFLEX ONLY) Routine 03/28/2024 11:05 AM CDT DNA DOUBLE-STRANDED (DSDNA) ANTIBODIES BY DARIUSZ PANIAGUA IFA Routine 03/28/2024 11:05 AM CDT MAURO positive SM ANTIBODY ([facility]) Routine 03/28/2024 1 1:05 AM CDT MAURO positive BOTTOM BRUSHER ANTIBODY Routine 03/28/2024 11:05 AM CDT MAURO positive THYROPEROXIDASE ANTIBODY Routine 03/28/2024 11:05 AM CDT MAURO positive BETA 2 GLYCOPROTEIN I CARMINA Routine 03/28/2024 11:05 AM CDT MAURO positive CARDIOLIPIN ANTIBODY Routine 03/28/2024 11:05 AM CDT MAURO positive LUPUS ANTICOAGULANT Routine 03/28/2024 1 1:05 AM CDT MAURO positive ACUPUNCTURE PLAN OF CARE Routine 03/26/2024 12:47 PM CDT Other chronic pain XR SPINE LUMBAR 2 VIEWS Routine 03/20/20 11:57 AM CDT Chronic midline low back pain without sciatica ACUPUNCTURE PLAN OF CARE Routine 03/15/2024 12:45 PM CDT Other chronic pain VA BLOOD COUNT COMPLETE AUTO&AUTO DIFRNTL WBC Routine 03/13/2024 3:14 PM CDT Polyarthralgia ANTINUCLEAR ANTIBODIES TITER AND PATTERN ([facility] REFLEX ONLY) Routine 03/13/2024 3:12 PM CDT C4 COMPLEMENT Routine 03/13/2024 3:12 PM CDT Polyarthralgia C3 COMPLEMENT Routine 03/13/2024 3:12 PM CDT Polyarthralgia ANTI HCV Routine 03/13/2024 3:12 PM CDT Polyarthralgia HEPATITIS B CORE ANTIBODY (IGM) ([facility]) Routine 03/13/2024 3:12 PM CDT Polyarthralgia HBSAG (HBS) Routine 03/13/2024 3:12 PM CDT Polyarthralgia ANTI HBC Routine 03/13/2024 3:12 PM CDT Polyarthralgia ANTINUCLEAR ANTIBODY BY IFA Routine 03/13/2024 3:12 PM CDT Polyarthralgia Skin rash CYCLIC CITRULLINE PEPTIDE Routine 03/13/2024 3:12 PM CDT Polyarthralgia RA QUANTITATIVE Routine 03/13/2024 3:12 PM CDT Polyarthralgia CK TOTAL Routine 03/13/2024 3:12 PM CDT Polyarthralgia SEDIMENTATION RATE Routine 03/13/2024 3: 12 PM CDT Polyarthralgia C-REACTIVE PROTEIN Routine 03/13/2024 3 :12 PM CDT Polyarthralgia COMP METABOLIC PANEL Routine 03/13/2024 3:12 PM CDT Polyarthralgia LYME SCREEN W/REFLEX Routine 03/13/2024 3:12 PM CDT Polyarthralgia URIC ACID Routine 03/13/2024 3:11 PM CDT Polyarthralgia PROTEIN/CREAT RATIO,URINE Routine 03/13/2024 3:10 PM CDT Polyarthralgia UA W/ SEDIMENT EXAM REFLEXED PER CRITERIA Routine 03/13/2024 3:10 PM CDT Polyarthralgia VITAMIN B12 Routine 03/13/2024 3:09 PM CDT Pins and needles sensation VITAMIN B6 BLOOD ([facility]) Routine 03/13/2024 3:08 PM CDT Pins and needles sensation SJOGRENS ANTIBODIES Routine 03/13/2024 3 :07 PM CDT Pins and needles sensation Dry eyes VITAMIN B1 (THIAMINE), BLOOD, LC/MS/MS ([employer]) Routine 03/13/2024 3:05 PM CDT Pins and needles sensation XR HAND 2 VIEWS BILATERAL Routine 03/13/2024 3:01 PM CDT Polyarthralgia XR HIP 2 VIEWS W PELVIS BILAT Routine 03/13/2024 2:59 PM CDT Polyarthralgia XR CHEST 2 VIEWS PA AND LATERAL Routine 03/13/2024 2:54 PM CDT Polyarthralgia Skin rash TSH Routine 03/12/2024 12:52 PM CDT 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 S/P thyroidectomy T4,FREE Routine 03/12/2024 12:47 PM CDT 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 S/P thyroidectomy US NECK OR HEAD SOFT TISSUE Routine 03/07/2024 10:04 AM CDT S/P thyroidectomy ACUPUNCTURE PLAN OF CARE Routine 02/27/2024 12:46 PM CDT Other chronic pain ACUPUNCTURE PLAN OF CARE Routine 02/20/2024 12:46 PM CDT Other chronic pain ACUPUNCTURE PLAN OF CARE Routine 02/09/2024 1:16 PM CDT Other chronic pain ACUPUNCTURE PLAN OF CARE Routine 01/12/2024 12:46 PM CDT Other chronic pain ANTI HIV 1/2 Routine 01/29/2021 11:49 AM CDT Screening examination for STD (sexually transmitted disease) HPV HIGH RISK Routine 01/29/2021 10:41 AM CDT Pap smear for cervical cancer screening from Last 3 Months or Most Recently Relevant to Health Maintenance Results * DRVVT CONFIRM ([facility] REFLEX ONLY) (03/28/2024 11:05 AM CDT) Pathologist [facility] DRVVT CONFIRM NEGATIVE NEGATIVE [facility] 03/28/2024 11:0 5 AM CDT 03/28/2024 11:06 AM CDT Narrative [facility] - 03/29/2024 1:03 PM CDT FASTING:NO FASTING: NO Aurelio Aragon MD LABORATORY Performing Organization Address [facility] de Phone Number [address] [address], [facility]-[address] [address] * SM ANTIBODY ([facility]) (03/28/2024 11:05 AM CDT) Pathologist [facility] SM ANTIBODY <1.0 NEG <1.0 NEG AI [facility] Blood BLOOD SPECIMEN / Unknown 03/28/2024 11:05 AM CDT 03/28/2024 11:06 AM CDT Narrative [facility] - 03/29/2024 2:21 PM CDT FASTING:NO FASTING: NO Aurelio Aragon MD SEND OUTS Performing Organization Address City/[facility]/ZIP Co de Phone Number [address] [address] [address], [facility] [address] [place] [address] * BOTTOM BRUSHER ANTIBODY (03/28/2024 11:05 AM CDT) BOTTOM BRUSHER ANTIBODY <1.0 NEG <1.0 NEG AI [email or web address] Blood BLOOD SPECIMEN / Unknown 03/28/2024 11:05 AM CDT 03/28/2024 11:06 AM CDT Narrative [facility] - 03/29/2024 2:21 PM CDT FASTING:NO FASTING: NO Aurelio Aragon MD SEND OUTS [facility] Digital [address] [address], [address] [address] * BETA 2 GLYCOPROTEIN I CARMINA (03/28/2024 11:05 AM CDT) Pathologist [facility] B2 GLYCOPROTEIN I (IGG)AB <2.0 U/mL [facility] Comment: Value ?Interpretation ----- ? < 20.0 ? Antibody not detected > or = 20.0 ?Antibody detected ?? The antiphospholipid antibody syndrome (APS) is a clinical-pathologic correlation that includes a clinical event (e.g. arterial or venous thrombosis, morbidity) and persistent positive antiphospholipid antibodies (IgM, IgG Cardiolipin or b2GPI antibodies greater than the 99th percentile; or a lupus anticoagulant). International consensus guidelines for APS suggest waiting at least 12 weeks before retesting to confirm antibody persistence. The [facility] immunological classification criteria for systemic lupus erythematosus (SLE) include testing for isotype IgA, which has yet to be incorporated into APS criteria. Low level antiphospholipid antibodies may sometimes be detected in the setting of infection, drug therapy or aging. For additional information, please refer to http://S4 Worldwide.Devver/faq/VXN358 (This link is being provided for informational/ educational purposes only.) B2 GLYCOPROTEIN I (IGM)AB <2.0 U/mL [facility] Comment: Value ?Interpretation ----- ? < 20.0 ? Antibody not detected > or = 20.0 ?Antibody detected ?? The antiphospholipid antibody syndrome (APS) is a clinical-pathologic correlation that includes a clinical event (e.g. arterial or venous thrombosis, morbidity) and persistent positive antiphospholipid antibodies (IgM, IgG Cardiolipin or b2GPI antibodies greater than the 99th percentile; or a lupus anticoagulant). International consensus guidelines for APS suggest waiting at least 12 weeks before retesting to confirm antibody persistence. The [facility] Lup[facility] immunological classification criteria for systemic lupus erythematosus (SLE) include testing for isotype IgA, which has yet to be incorporated into APS criteria. Low level antiphospholipid antibodies may sometimes be detected in the setting of infection, drug therapy or aging. For additional information, please refer to http://S4 Worldwide.Devver/faq/IWS156 (This link is being provided for informational/ educational purposes only.) B2 GLYCOPROTEIN I (IGA)AB <2.0 U/mL [facility] Comment: Value ?Interpretation ----- ? < 20.0 ? Antibody not detected > or = 20.0 ?Antibody detected ?? The antiphospholipid antibody syndrome (APS) is a clinical-pathologic correlation that includes a clinical event (e.g. arterial or venous thrombosis, morbidity) and persistent positive antiphospholipid antibodies (IgM, IgG Cardiolipin or b2GPI antibodies greater than the 99th percentile; or a lupus anticoagulant). International consensus guidelines for APS suggest waiting at least 12 weeks before retesting to confirm antibody persistence. The [facility] Lup[facility] immunological classification criteria for systemic lupus erythematosus (SLE) include testing for isotype IgA, which has yet to be incorporated into APS criteria. Low level antiphospholipid antibodies may sometimes be detected in the setting of infection, drug therapy or aging. For additional information, please refer to http://S4 Worldwide.Devver/faq/PWC464 (This link is being provided for informational/ educational purposes only.) Blood BLOOD SPECIMEN / Unknown 03/28/2024 11:05 AM CDT 03/28/2024 11:06 AM CDT Narrative [facility] - 03/30/2024 2:48 AM CDT FASTING:NO FASTING: NO Aurelio Aragon MD SEND OUTS [address] [facility] [address] [place] [address], [facility] [address] [place] [address] * CARDIOLIPIN ANTIBODY (03/28/2024 11:05 AM CDT) CARDIOLIPIN AB (IGA) <2.0 APL-U/mL [facility] Comment: Value ?Interpretation ----- ? < 20.0 ? Antibody not detected > or = 20.0 ?Antibody detected CARDIOLIPIN AB (IGG) <2.0 GPL-U/mL [facility] Comment: Value ?Interpretation ----- ? < 20.0 ? Antibody not detected > or = 20.0 ?Antibody detected CARDIOLIPIN AB (IGM) <2.0 MPL-U/mL [facility] Comment: Value ?Interpretation ----- ? < 20.0 ? Antibody not detected > or = 20.0 ?Antibody detected The antiphospholipid antibody syndrome (APS) is a clinical-pathologic correlation that includes a clinical event (e.g. arterial or venous thrombosis, morbidity) and persistent positive antiphospholipid antibodies (IgM, IgG Cardiolipin or b2GPI antibodies greater than the 99th percentile; or a lupus anticoagulant). International consensus guidelines for APS suggest waiting at least 12 weeks before retesting to confirm antibody persistence. The [facility] Lup[facility] International [facility] immunological classification criteria for systemic lupus erythematosus (SLE) include testing for isotype IgA, which has yet to be incorporated into APS criteria. Low level antiphospholipid antibodies may sometimes be detected in the setting of infection, drug therapy or aging. For additional information, please refer to http://S4 Worldwide.Devver/faq/LFF708 (This link is being provided for informational/ educational purposes only.) Blood BLOOD SPECIMEN / Unknown 03/28/2024 11:05 AM CDT 03/28/2024 11:06 AM CDT Narrative [facility] - 03/30/2024 3:29 AM CDT FASTING:NO FASTING: NO Aurelio Aragon MD SEND OUTS [address] [facility] [address] [place] [address], [facility] [address] [place] [address] * (ABNORMAL) LUPUS ANTICOAGULANT (03/28/2024 11:05 AM CDT) LUPUS ANTICOAGULANT [facility] Comment: A Lupus Anticoagulant is not detected. Common causes for a prolonged screen and negative confirmatory test include factor deficiencies or anticoagulant therapy. For more information on this test, go to: http://S4 Worldwide.Devver/faq/TNU81j9 (This link is being provided for informational/ educational purposes only.) This interpretation is based on the following test results: PTT-LA SCREEN 33 < OR = 40 sec [facility] DRVVT SCREEN 49(H) < OR = 45 sec [facility] Blood BLOOD SPECIMEN / Unknown 03/28/2024 11:05 AM CDT 03/28/2024 11:06 AM CDT Narrative [facility] - 03/29/2024 1:03 PM CDT FASTING:NO FASTING: NO Aurelio Aragon MD SEND OUTS Performing Organization Address [facility] Co de Phone Number [facility] [address] [place] [address], [place] [phone] [email or web address] [address] [place] [address] * THYROPEROXIDASE ANTIBODY (03/28/2024 11:05 AM CDT) THYROID PEROXIDASE ANTIBODIES 2 <9 IU/mL [facility] Blood BLOOD SPECIMEN / Unknown 03/28/2024 11:05 AM CDT 03/28/2024 11:06 AM CDT Narrative [facility] - 03/30/2024 8:21 AM CDT FASTING:NO FASTING: NO Aurelio Aragon MD SEND OUTS Performing Organization Address [facility] Co de Phone Number [address] [facility] [address] [email or web address] [address], [place] [phone] [email or web address] [address] [place] [address] * DNA DOUBLE-STRANDED (DSDNA) ANTIBODIES BY CRITHIDIA LUCILIAE IFA (03/28/2024 11:05 AM CDT) DNA (DS) ANTIBODY <1 IU/mL [facility] [employer] [facility] Comment: ? IU/mL ? Interpretation ? < or = 4 ?Negative ? 5-9 ? Indeterminate ? > or = 10 ?? Positive Blood BLOOD SPECIMEN / Unknown 03/28/2024 11:05 AM CDT 03/28/2024 11:06 AM CDT Narrative [facility] - 03/29/2024 2:21 PM CDT FASTING:NO FASTING: NO uArelio Aragon MD SEND OUTS [address] [facility] [address] [place] [address], [email or web address] [address] [place] [address] * XR SPINE LUMBAR 2 VIEWS (03/20/2024 11:57 AM CDT) Anatomical Region Laterality Modality LUMBAR SPINE Computed Radiogr aphy 03/20/2024 5:57 PM CDT Impressions 03/20/2024 5:57 PM CDT Degenerative changes at L3-4 have increased. Dictated by Edward Bourgeois MD @ 03/20/2024 5:57:36 PM (Electronically Signed) Narrative 03/20/2024 5:57 PM CDT For Patients: ??As a result of the Century Cures Act, medical imaging exams and procedure reports are released immediately into your electronic medical record. ??You may view this report before your referring provider. ??If you have questions, please contact your health care provider. INDICATION: Chronic midline low back pain without sciatica. TECHNIQUE: Lumbar spine two views. COMPARISON: 03/18/2018. FINDINGS: Spinal fusion hardware at L4 through S1 as imaged shows no evidence of complication. Alignment is unchanged. Elcl-th-xwhthggu multilevel degenerative disease has progressed at L3-4. No acute or other osseous abnormality. Paraspinal soft tissues as imaged are unremarkable. Procedure Note Edward Bourgeois, - 03/20/2024 For Patients: As a result of the Cures Act, medical imagingexams and procedure reports are released immediately into your electronicmedical record. You may view this report before your referring provider.If you have questions, please contact your health care provider. INDICATION: Chronic midline low back pain without sciatica. TECHNIQUE: Lumbar spine two views. COMPARISON: 03/18/2018. FINDINGS: Spinal fusion hardware at L4 through S1 as imaged shows no evidence ofcomplication. Alignment is unchanged. Hbsz-xy-gmfoawuc multileveldegenerative disease has progressed at L3-4. No acute or other osseousabnormality. Paraspinal soft tissues as imaged are unremarkable. IMPRESSION: Degenerative changes at L3-4 have increased. Dictated by Edward Bourgeois MD @ 03/20/2024 5:57:36 PM (Electronically Signed) Aurelio Aragon MD GENERAL MARIANNE GING * CBC AND DIFFERENTIAL (03/13/2024 3:14 PM CDT) WHITE BLOOD CELL COUNT 9.5 3.8 - 10.8 Thousand/u L [facility]) RED BLOOD CELL COUNT 4.37 3.80 - 5.10 Million/uL [facility] HEMOGLOBIN 13.1 11.7 - 15.5 g/dL [facility] HEMATOCRIT 39.5 35.0 - 45.0 % [facility]) MCV 90.4 80.0 - 100.0 fL [facility] MCH 30.0 27.0 - 33.0 pg [facility]) MCHC 33.2 32.0 - 36.0 g/dL [facility] Comment: For adults, a slight decrease in the calculated MCHC value (in the range of 30 to 32 g/dL) is most likely not clinically significant; however, it should be interpreted with caution in correlation with other red cell parameters and the patient's clinical condition. RDW 12.2 11.0 - 15.0 % [facility] PLATELET COUNT 375 140 - 400 Thousand/u L [facility] MPV 9.5 7.5 - 12.5 fL [facility] ABSOLUTE NEUTROPHILS 5,757 1,500 - 7,800 cells/uL [facility]) ABSOLUTE LYMPHOCYTES 2,926 850 - 3,900 cells/uL [facility] ABSOLUTE MONOCYTES 618 200 - 950 cells/uL [facility]) ABSOLUTE EOSINOPHILS 171 15 - 500 cells/uL [facility]) ABSOLUTE BASOPHILS 29 0 - 200 cells/uL [facility]) NEUTROPHILS 60.6 % [facility] LYMPHOCYTES 30.8 % [facility] MONOCYTES 6.5 % [facility]) EOSINOPHILS 1.8 % [facility]) BASOPHILS 0.3 % [facility]) Blood BLOOD SPECIMEN / Unknown 03/13/2024 3:14 PM CDT 03/13/2024 3:15 PM CDT Narrative [facility] - 03/13/2024 4:12 PM CDT SPLIT 03/13/2024 FROM [id number] Aurelio Aragon MD HEMATOLOGY Performing Organization Address City/[facility]/ZIP Co de Phone Number [facility] [address] [place] [address], [facility] [address] [place] [address] * (ABNORMAL) ANTINUCLEAR ANTIBODIES TITER AND PATTERN ([facility] REFLEX ONLY) (03/13/2024 3:12 PM CDT) MAURO TITER 1:80(H) titer [facility] Comment: A low level MAURO titer may be present in pre-clinical autoimmune diseases and normal individuals. ?Reference Range ?<1:40 ?Negative ?1:40-1:80 ?Low Antibody Level ?>1:80 ?Elevated Antibody Level MAURO PATTERN Nuclear, Homogeneou s(A) [facility] Comment: Homogeneous pattern is associated with systemic lupus erythematosus (SLE), drug-induced lupus and juvenile idiopathic arthritis. AC-1: Homogeneous International Consensus on MAURO Patterns (https://doi.org/10.1515/fzhj-0591-5115) 03/13/2024 3:12 PM CDT 03/13/2024 3:13 PM CDT Narrative [facility] - 03/15/2024 6:50 AM CDT MULTIPLE TESTING PRIORITIES; ROUTINE TESTING TO FOLLOW. Aurelio Aragon MD LABORATORY Performing Organization Address City/[facility]/ZIP Co de Phone Number [facility] [address] [place] [address], [facility] [address] [place] [address] * HEPATITIS B CORE ANTIBODY (IGM) ([facility]) (03/13/2024 3:12 PM CDT) HEPATITIS B CORE ANTIBODY (IGM) NON-REACTI VE NON-REACTI VE [facility] Comment: For additional information, please refer to http://education.Devver/faq/IGF077 (This link is being provided for informational/ educational purposes only.) Blood BLOOD SPECIMEN / Unknown 03/13/2024 3:12 PM CDT 03/13/2024 3:13 PM CDT Narrative [facility] - 03/14/2024 1:45 PM CDT MULTIPLE TESTING PRIORITIES; ROUTINE TESTING TO FOLLOW. Aurelio Aragon MD SEND OUTS [address] [facility] [address] [place] [address], [email or web address] [address] [place] [address] * (ABNORMAL) SEDIMENTATION RATE (03/13/2024 3:12 PM CDT) Pathologist [facility] SED RATE BY MODIFIED WESTERGREN 28(H) < OR = 20 mm/h [facility] Blood BLOOD SPECIMEN / Unknown 03/13/2024 3:12 PM CDT 03/13/2024 3:13 PM CDT Narrative [facility] - 03/14/2024 4:35 AM CDT MULTIPLE TESTING PRIORITIES; ROUTINE TESTING TO FOLLOW. Aurelio Aragon MD HEMATOLOGY [address] [facility] [address] [place] [address], [place] [phone] [facility] [address] [place] [address] * (ABNORMAL) ANTINUCLEAR ANTIBODY BY IFA (03/13/2024 3:12 PM CDT) Pathologist [facility] MAURO SCREEN, IFA POSITIVE( A) NEGATIVE [facility] Comment: MAURO IFA is a first line screen for detecting the presence of up to approximately 150 autoantibodies in various autoimmune diseases. A positive MAURO IFA result is suggestive of autoimmune disease and reflexes to titer and pattern. Further laboratory testing may be considered if clinically indicated. For additional information, please refer to http://education.Alvo [employer]./faq/ZQS413 (This link is being provided for informational/ educational purposes only.) ?? Blood BLOOD SPECIMEN / Unknown 03/13/2024 3:12 PM CDT 03/13/2024 3:13 PM CDT Narrative [facility] - 03/15/2024 6:50 AM CDT MULTIPLE TESTING PRIORITIES; ROUTINE TESTING TO FOLLOW. Aurelio Aragon MD CHEMISTRY Performing Organization Address [facility] Co de Phone Number [address] [facility] [address] [place] [address], [place] [phone] [facility] [address] [place] [address] * CYCLIC CITRULLINE PEPTIDE (03/13/2024 3:12 PM CDT) CYCLIC CITRULLINATED PEPTIDE (CCP) AB (IGG) <16 UNITS [facility] Comment: Reference Range Negative: ?<20 Weak Positive: ? 20-39 Moderate Positive: ?? 40-59 Strong Positive: ? >59 Blood BLOOD SPECIMEN / Unknown 03/13/2024 3:12 PM CDT 03/13/2024 3:13 PM CDT Narrative [facility] - 03/14/2024 12:37 PM CDT MULTIPLE TESTING PRIORITIES; ROUTINE TESTING TO FOLLOW. Aurelio Aragon MD SEND OUTS Performing Organization Address [facility] Co de Phone Number [address] [facility] [address] [place] [address], [place] [phone] [facility] [address] [place] [address] * HBSAG (HBS) (03/13/2024 3:12 PM CDT) HEPATITIS B SURFACE ANTIGEN NON-REACTI VE NON-REACTI VE [facility] esther [facility] Comment: For additional information, please refer to http://Thubrikar Aortic Valve/faq/JXG655 (This link is being provided for informational/ educational purposes only.) Blood BLOOD SPECIMEN / Unknown 03/13/2024 3:12 PM CDT 03/13/2024 3:13 PM CDT Narrative [facility] - 03/14/2024 1:45 PM CDT MULTIPLE TESTING PRIORITIES; ROUTINE TESTING TO FOLLOW. Aurelio Aragon MD SEND OUTS Performing Organization Address [facility]/ZIP Co de Phone Number [address] [facility] [address] [place] [address], [facility] [address] [place] [address] * ANTI HCV (03/13/2024 3:12 PM CDT) Pathologist [facility] HEPATITIS C ANTIBODY NON-REACTI VE NON-REACT CHANTELL [facility] Comment: HCV antibody was non-reactive. There is no laboratory evidence of HCV infection. In most cases, no further action is required. However, if recent HCV exposure is suspected, a test for HCV RNA (test code 70620) is suggested. For additional information please refer to http://S4 Worldwide.Devver/faq/SRY82k7 (This link is being provided for informational/ educational purposes only.) Blood BLOOD SPECIMEN / Unknown 03/13/2024 3:12 PM CDT 03/13/2024 3:13 PM CDT Narrative [facility] - 03/14/2024 1:45 PM CDT MULTIPLE TESTING PRIORITIES; ROUTINE TESTING TO FOLLOW. Aurelio Aragon MD SEND OUTS Performing Organization Address City/[facility]/ZIP Co de Phone Number [address] [facility] [address] [place] [address], [facility] [address] [place] [address] * LYME SCREEN W/REFLEX (03/13/2024 3:12 PM CDT) LYME AB, SCREEN < or = 0.90 index [facility], Comment: REFERENCE RANGE: ??< OR = 0.90 Index Index ? Interpretation < OR = 0.90 ? NEGATIVE 0.91 - 1.09 ? EQUIVOCAL > OR = 1.10 ? POSITIVE This assay measures Lyme Disease (Borrelia burgdorferi) IgG plus IgM antibodies; it does not distinguish results that are both IgG and IgM positive from results that are either IgG or IgM positive. As recommended by the Centers for Disease Control and Prevention (CDC), all samples with positive or equivocal results in this screening assay will be tested using separate supplemental Lyme IgG and IgM immunoassays. Positive or equivocal screening assay results should not be interpreted as truly positive until verified as such using the supplemental assays. Screening and/or supplemental tests for Lyme disease antibodies may be falsely negative in early stages of Lyme disease, including the period when erythema migrans is apparent. These assays may be falsely positive in patients with other spirochetal diseases (e.g., syphilis) or infectious mononucleosis. Blood BLOOD SPECIMEN / Unknown 03/13/2024 3:12 PM CDT 03/13/2024 3:13 PM CDT Narrative [facility] - 03/19/2024 4:44 PM CDT MULTIPLE TESTING PRIORITIES; ROUTINE TESTING TO FOLLOW. Aurelio Aragon MD SEND OUTS [facility] [address] [place] [address], [facility], [address] [place] [address] * RA QUANTITATIVE (03/13/2024 3:12 PM CDT) RHEUMATOID FACTOR <10 <14 IU/mL [facility] Blood BLOOD SPECIMEN / Unknown 03/13/2024 3:12 PM CDT 03/13/2024 3:13 PM CDT Narrative [facility] - 03/14/2024 2:35 PM CDT MULTIPLE TESTING PRIORITIES; ROUTINE TESTING TO FOLLOW. Aurelio Aragon MD SEND OUTS Performing Organization Address [facility]/ZIP Co de Phone Number [address] [facility] [address] [place] [address], [place] [phone] [email or web address] [address] [place] [address] * C3 COMPLEMENT (03/13/2024 3:12 PM CDT) COMPLEMENT COMPONENT C3C 186 83 - 193 mg/dL [facility] Blood BLOOD SPECIMEN / Unknown 03/13/2024 3:12 PM CDT 03/13/2024 3:13 PM CDT Narrative [facility] - 03/14/2024 7:07 PM CDT MULTIPLE TESTING PRIORITIES; ROUTINE TESTING TO FOLLOW. Aurelio Aragon MD CHEMISTRY [address] [facility] [address] [place] [address], [place] [phone] [email or web address] [address] [place] [address] * C4 COMPLEMENT (03/13/2024 3:12 PM CDT) COMPLEMENT COMPONENT C4C 27 15 - 57 mg/dL [email or web address] Blood BLOOD SPECIMEN / Unknown 03/13/2024 3:12 PM CDT 03/13/2024 3:13 PM CDT Narrative [facility] - 03/14/2024 7:07 PM CDT MULTIPLE TESTING PRIORITIES; ROUTINE TESTING TO FOLLOW. Aurelio Aragon MD CHEMISTRY Performing Organization Address [facility] Co de Phone Number [address] [facility] [address] [place] [address], [facility] [address] [place] [address] * ANTI HBC (03/13/2024 3:12 PM CDT) HEPATITIS B CORE AB TOTAL NON-REACTI VE NON-REACTI VE [email or web address] Comment: For additional information, please refer to http://education.Devver/faq/KAK859 (This link is being provided for informational/ educational purposes only.) Blood BLOOD SPECIMEN / Unknown 03/13/2024 3:12 PM CDT 03/13/2024 3:13 PM CDT Narrative [facility] - 03/14/2024 1:45 PM CDT MULTIPLE TESTING PRIORITIES; ROUTINE TESTING TO FOLLOW. Aurelio Aragon MD SEND OUTS Performing Organization Address [facility] Co de Phone Number [address] [facility] [address] [place] [address], [email or web address] [address] [place] [address] * C-REACTIVE PROTEIN (03/13/2024 3:12 PM CDT) C-REACTIVE PROTEIN <3.0 <8.0 mg/L [email or web address] Blood BLOOD SPECIMEN / Unknown 03/13/2024 3:12 PM CDT 03/13/2024 3:13 PM CDT Narrative [facility] - 03/14/2024 2:35 PM CDT MULTIPLE TESTING PRIORITIES; ROUTINE TESTING TO FOLLOW. Aurelio Aragon MD CHEMISTRY Performing Organization Address [facility]/ZIP Co de Phone Number [address] [facility] [address] [place] [address], [facility] [address] [place] [address] * (ABNORMAL) CK TOTAL (03/13/2024 3:12 PM CDT) Pathologist [facility] CREATINE KINASE, TOTAL 201(H) 29 - 143 U/L [facility] Blood BLOOD SPECIMEN / Unknown 03/13/2024 3:12 PM CDT 03/13/2024 3:13 PM CDT Narrative [facility] - 03/14/2024 4:35 AM CDT MULTIPLE TESTING PRIORITIES; ROUTINE TESTING TO FOLLOW. Aurelio Aragon MD CHEMISTRY Performing Organization Address [facility]/ZIP Co de Phone Number [address] [facility] [address] [place] [address], [facility] [address] [place] [address] * COMP METABOLIC PANEL (03/13/2024 3:12 PM CDT) Pathologist [facility] GLUCOSE 90 65 - 99 mg/dL [facility] Comment: ? Fasting reference interval UREA NITROGEN (BUN) 10 7 - 25 mg/dL [facility] CREATININE 0.82 0.50 - 0.97 mg/dL [facility] EGFR 96 > OR = 60 mL/min/1. 73m2 [facility] BUN/CREATININE RATIO SEE NOTE: 6 (calc) [facility] Comment: ?? Not Reported: BUN and Creatinine are within ?? reference range. ? SODIUM 138 135 - 146 mmol/L [facility] POTASSIUM 4.8 3.5 - 5.3 mmol/L [facility] CHLORIDE 107 98 - 110 mmol/L [facility] CARBON DIOXIDE 24 20 - 32 mmol/L [facility] CALCIUM 9.0 8.6 - 10.2 mg/dL [facility] PROTEIN, TOTAL 7.2 6.1 - 8.1 g/dL [facility] ALBUMIN 4.4 3.6 - 5.1 g/dL [facility] GLOBULIN 2.8 1.9 - 3.7 g/dL (calc) [facility] ALBUMIN/GLOBULIN RATIO 1.6 1.0 - 2.5 (calc) [facility] BILIRUBIN, TOTAL 0.3 0.2 - 1.2 mg/dL [facility] ALKALINE PHOSPHATASE 93 31 - 125 U/L [facility] AST 15 10 - 30 U/L [facility] ALT 19 6 - 29 U/L [facility] Blood BLOOD SPECIMEN / Unknown 03/13/2024 3:12 PM CDT 03/13/2024 3:13 PM CDT Narrative [facility] - 03/14/2024 4:35 AM CDT MULTIPLE TESTING PRIORITIES; ROUTINE TESTING TO FOLLOW. Aurelio Aragon MD CHEMISTRY Performing Organization Address City/State/[facility] Co de Phone Number [facility] [address] [place] [address], [facility] [address] [place] [address] * URIC ACID (03/13/2024 3:11 PM CDT) URIC ACID 4.8 2.5 - 7.0 mg/dL [facility] Comment: Therapeutic target for gout patients: <6.0 mg/dL ?? Blood BLOOD SPECIMEN / Unknown 03/13/2024 3:11 PM CDT 03/13/2024 3:12 PM CDT Aurelio Aragon MD CHEMISTRY [address] [facility] [address] [place] [address], [facility] [address] [place] [address] * PROTEIN/CREAT RATIO,URINE (03/13/2024 3:10 PM CDT) CREATININE, RANDOM URINE 75 20 - 275 mg/dL [email or web address] PROTEIN/CREATIN INE RATIO MG/G 80 24 - 184 mg/g creat [facility] PROTEIN/CREATIN INE RATIO MG/MG 0.080 0.024 - 0.184 mg/mg creat [email or web address] PROTEIN, TOTAL, RANDOM UR 6 5 - 24 mg/dL [facility] Urine URINE SPECIMEN / Unknown 03/13/2024 3:10 PM CDT 03/13/2024 3:11 PM CDT Aurelio Aragon MD URINE Performing Organization Address [facility]/ZIP Co de Phone Number [address] [address], [facility] [address] [place] [address] * UA W/ SEDIMENT EXAM REFLEXED PER CRITERIA (03/13/2024 3:10 PM CDT) COLOR YELLOW YELLOW [facility]) APPEARANCE CLEAR CLEAR [facility]) SPECIFIC GRAVITY 1.010 1.001 - 1.035 [facility] (Urgent Care) PH 6.0 5.0 - 8.0 [facility] (Urgent Care) GLUCOSE NEGATIVE NEGATIVE [facility]) BILIRUBIN NEGATIVE NEGATIVE [facility]Urgent Care) KETONES NEGATIVE NEGATIVE [facility]) OCCULT BLOOD NEGATIVE NEGATIVE [facility]) PROTEIN NEGATIVE NEGATIVE [facility]) NITRITE NEGATIVE NEGATIVE [facility]) LEUKOCYTE ESTERASE NEGATIVE NEGATIVE [facility] Urine URINE SPECIMEN / Unknown 03/13/2024 3:10 PM CDT 03/13/2024 3:11 PM CDT Aurelio Aragon MD URINE [facility] [address] [place] [address], [facility] Special[facility] (Urgent Care) [address] [place] [address] * VITAMIN B12 (03/13/2024 3:09 PM CDT) VITAMIN B12 467 200 - 1,100 pg/mL [facility] Blood BLOOD SPECIMEN / Unknown 03/13/2024 3:09 PM CDT 03/13/2024 3:09 PM CDT Aurelio Aragon MD CHEMISTRY Performing Organization Address City/[facility]/ZIP Co de Phone Number [facility] [address] [place] [address], [facility] [address] [place] [address] * VITAMIN B6 BLOOD ([facility]) (03/13/2024 3:08 PM CDT) VITAMIN B6, PLASMA 15.0 2.1 - 21.7 ng/mL [facility] Comment: (Note) Vitamin supplementation within 24 hours prior to blood draw may affect the accuracy of results. This test was developed and its analytical performance characteristics have been determined by [facility]. It has not been cleared or approved by the FDA. This assay has been validated pursuant to the CLIA regulations and is used for clinical purposes. [facility] [address] [address],[address] [place] [address] Gregorio Encarnacion MD, PhD Blood BLOOD SPECIMEN / Unknown 03/13/2024 3:08 PM CDT 03/13/2024 3:08 PM CDT Aurelio Aragon MD SEND OUTS Performing Organization Address City/[facility]/ZIP Co de Phone Number [facility] [address] [place] [phone], [facility] [address] [address], [address] [place] [address] * SJOGRENS ANTIBODIES (03/13/2024 3:07 PM CDT) SJOGREN'S ANTIBODY (SS-A) <1.0 NEG <1.0 NEG AI [email or web address] SJOGREN'S ANTIBODY (SS-B) <1.0 NEG <1.0 NEG [email or web address] Blood BLOOD SPECIMEN / Unknown 03/13/2024 3:07 PM CDT 03/13/2024 3:07 PM CDT Aurelio Aragon MD SEND OUTS Performing Organization Address [facility] Co de Phone Number [address] [facility] [address] [place] [address], [email or web address] [address] [place] [address] * VITAMIN B1 (THIAMINE), BLOOD, LC/MS/MS ([facility]) (03/13/2024 3:05 PM CDT) VITAMIN B1 (THIAMINE), BLOOD, LC/MS/MS 115 78 - 185 nmol/L [facility] Comment: (Note) Vitamin supplementation within 24 hours prior to blood draw may affect the accuracy of the results. This test was developed and its analytical performance characteristics have been determined by [facility]. It has not been cleared or approved by FDA. This assay has been validated pursuant to the CLIA regulations and is used for clinical purposes. [facility] [address] [facility] [address] [facility] [address] Gregorio Encarnacion MD, PhD Blood BLOOD SPECIMEN / Unknown 03/13/2024 3:05 PM CDT 03/13/2024 3:06 PM CDT Sofíajaron Feliberto Aragon MD SEND OUTS [facility] [address] [address], [facility] [address] [facility] [address], [address] [place] [address] * XR HAND 2 VIEWS BILATERAL (03/13/2024 3:01 PM CDT) Anatomical Region Laterality Modality HAND L, HAND R, HANDS Digital Ra diography 03/15/2024 4:05 PM CDT Narrative 03/15/2024 4:05 PM CDT For Patients: ??As a result of the Cures Act, medical imaging exams and procedure reports are released immediately into your electronic medical record. ??You may view this report before your referring provider. ??If you have questions, please contact your health care provider. Indication: Polyarthralgia Technique: Bilateral hand 2 views. Comparison: None. Findings: Bones: Alignment is normal. No fractures or bone lesions. ?? Joint spaces: Unremarkable. ?? Soft tissues: Unremarkable. ?? Impression: Unremarkable bilateral hand radiographs. Dictated by Yumi Feng MD @ 03/15/2024 4:05:07 PM (Electronically Signed) Procedure Note Yumi Feng MD - 03/15/2024 For Patients: As a result of the Cures Act, medical imagingexams and procedure reports are released immediately into your electronicmedical record. You may view this report before your referring provider.If you have questions, please contact your health care provider. Indication: Polyarthralgia Technique: Bilateral hand 2 views. Comparison: None. Findings: Bones: Alignment is normal. No fractures or bone lesions. Joint spaces: Unremarkable. Soft tissues: Unremarkable. Impression: Unremarkable bilateral hand radiographs. Dictated by Yumi Feng MD @ 03/15/2024 4:05:07 PM (Electronically Signed) Aurelio Aragon MD [facility] * XR HIP 2 VIEWS W PELVIS BILAT (03/13/2024 2:59 PM CDT) Anatomical Region Laterality Modality HIPS, HIPL, HIPR, Pelvis Digital Radiography 03/15/2024 4:02 PM CDT Narrative 03/15/2024 4:02 PM CDT For Patients: ??As a result of the Cures Act, medical imaging exams and procedure reports are released immediately into your electronic medical record. ??You may view this report before your referring provider. ??If you have questions, please contact your health care provider. Indication: Polyarthralgia Technique: Bilateral hip 3 views Comparison: Lumbar spine radiographs 03/18/2018 Findings: Bones: Lumbosacral hardware with slightly inferior angulation of the superior most screws compared to radiographs from 2018, although this may be positional. No acute fracture or dislocation. Joint spaces: Joint spaces are preserved. No ??significant degenerative changes. ?? Soft tissues: Unremarkable. ?? Impression: 1. No acute fracture or dislocation. 2. Lumbosacral hardware with slightly inferior angulation of the superior most screws compared to radiographs from 2018, although this may be positional. Consider dedicated lumbar spine radiographs for more direct comparison. Dictated by Yumi Feng MD @ 03/15/2024 4:02:16 PM (Electronically Signed) Procedure Note Yumi Feng MD - 03/15/2024 For Patients: As a result of the Cures Act, medical imagingexams and procedure reports are released immediately into your electronicmedical record. You may view this report before your referring provider.If you have questions, please contact your health care provider. Indication: Polyarthralgia Technique: Bilateral hip 3 views Comparison: Lumbar spine radiographs 03/18/2018 Findings: Bones: Lumbosacral hardware with slightly inferior angulation of thesuperior most screws compared to radiographs from 2018, although this maybe positional. No acute fracture or dislocation. Joint spaces: Joint spaces are preserved. No significant degenerativechanges. Soft tissues: Unremarkable. Impression: 1. No acute fracture or dislocation. 2. Lumbosacral hardware with slightly inferior angulation of the superiormost screws compared to radiographs from 2018, although this may bepositional. Consider dedicated lumbar spine radiographs for more directcomparison. Dictated by Yumi Feng MD @ 03/15/2024 4:02:16 PM (Electronically Signed) Aurelio Aragon MD [facility] * XR CHEST 2 VIEWS PA AND LATERAL (03/13/2024 2:54 PM CDT) Anatomical Region Laterality Modality CHEST, THORAX, Lung, HEART Digit al Radiography 03/13/2024 3:53 PM CDT Narrative 03/13/2024 3:53 PM CDT For Patients: ??As a result of the Cures Act, medical imaging exams and procedure reports are released immediately into your electronic medical record. ??You may view this report before your referring provider. ??If you have questions, please contact your health care provider. Indication: Polyarthralgia, skin rash Technique: Chest 2 views Comparison: Chest x-ray and rib series 04/10/2022 Findings/Impression: Cardiovascular and mediastinum: ??Heart size and vasculature are normal in caliber and appearance. ??Mediastinum is within normal limits. ?? Lungs and pleural spaces: ??Lungs are clear. ??No sign of infiltrate or mass. ??No sign of pleural effusion. ??No pneumothorax. ?? Bones and soft tissues: ??No significant findings. Dictated by Neal Beverly MD @ 03/13/2024 3:53:51 PM (Electronically Signed) Procedure Note Neal Beverly MD - 03/13/2024 For Patients: As a result of the Cures Act, medical imagingexams and procedure reports are released immediately into your electronicmedical record. You may view this report before your referring provider.If you have questions, please contact your health care provider. Indication: Polyarthralgia, skin rash Technique: Chest 2 views Comparison: Chest x-ray and rib series 04/10/2022 Findings/Impression: Cardiovascular and mediastinum: Heart size and vasculature are normal incaliber and appearance. Mediastinum is within normal limits. Lungs and pleural spaces: Lungs are clear. No sign of infiltrate ormass. No sign of pleural effusion. No pneumothorax. Bones and soft tissues: No significant findings. Dictated by Neal Beverly MD @ 03/13/2024 3:53:51 PM (Electronically Signed) Aurelio Aragon MD [facility] MARIANNE [facility]ING * TSH (03/12/2024 12:52 PM CDT) TSH 1.57 mIU/L [facility] Comment: ?Reference Range ?> or = 20 Years ??0.40-4.50 ? Ranges ?First trimester ?0.26-2.66 ?Second trimester ?? 0.55-2.73 ?Third trimester ?0.43-2.91 Blood BLOOD SPECIMEN / Unknown 03/12/2024 12:52 PM CDT 03/12/2024 12:52 PM CDT Johnna Ram NP CHEMISTRY [address] [facility] [address] [place] [address], [facility] [address] [place] [address] * T4,FREE (03/12/2024 12:47 PM CDT) T4, FREE 1.1 0.8 - 1.8 ng/dL [facility] Blood BLOOD SPECIMEN / Unknown 03/12/2024 12:47 PM CDT 03/12/2024 12:49 PM CDT Johnna Ram DIESEL RETROFIT DESIGNER CHEMISTRY [address] [facility] [address] [place] [address], [facility] [address] [place] [address] * US NECK OR HEAD SOFT TISSUE (03/07/2024 10:04 AM CDT) Anatomical Region Laterality Modality NECK Ultrasound 03/07/2024 3:29 PM CDT Impressions 03/07/2024 3:29 PM CDT No suspicious findings. Dictated by Eugenio Gallo MD @ 03/07/2024 3:29:52 PM (Electronically Signed) Narrative 03/07/2024 3:29 PM CDT For Patients: ??As a result of the Cures Act, medical imaging exams and procedure reports are released immediately into your electronic medical record. ??You may view this report before your referring provider. ??If you have questions, please contact your health care provider. INDICATION: Status post thyroidectomy COMPARISON: none TECHNIQUE: Orellana scale and color Doppler images were acquired of the thyroid bed. FINDINGS: Status post thyroidectomy. No residual thyroid tissue. Normal right cervical lymph node measuring 1.5 x 0.3 x 1.0 cm. Procedure Note Eugenio Gallo MD - 03/07/2024 For Patients: As a result of the Cures Act, medical imagingexams and procedure reports are released immediately into your electronicmedical record. You may view this report before your referring provider.If you have questions, please contact your health care provider. INDICATION: Status post thyroidectomy COMPARISON: none TECHNIQUE: Orellana scale and color Doppler images were acquired of the thyroid bed. FINDINGS: Status post thyroidectomy. No residual thyroid tissue. Normal rightcervical lymph node measuring 1.5 x 0.3 x 1.0 cm. IMPRESSION: No suspicious findings. Dictated by Eugenio Gallo MD @ 03/07/2024 3:29:52 PM (Electronically Signed) Johnna Ram DIESEL RETROFIT DESIGNER US * ANTI HIV 1/2 (01/29/2021 11:49 AM CDT) HIV-1/HIV-2 ANTIBODY Non-Reacti ve Non-Reacti ve 01/29/2021 6:33 PM CDT [facility] Comment:HIV-1 p24 and HIV-1/ HIV-2 Ab not detected. Blood BLOOD SPECIMEN / Unknown Venipuncture / Unknown 01/29/2021 11:49 AM CDT 01/29/2021 11:49 AM CDT Marianaalma Abebe Irvin TAPIA SEND OUTS Performing Organization Address City/[facility]/ZIP Co de Phone Number [facility] [address] [place] [address], * HPV HIGH RISK (01/29/2021 10:41 AM CDT) TYPE 16 Negative Negative 02/03/2021 11:04 AM CDT [facility] TYPE 18 Negative Negative 02/03/2021 11:04 AM CDT [facility] OTHER HIGH RISK TYPES Negative Negative 02/03/2021 11:04 AM CDT [facility] Other (Cervical) Non-Blood / Unknown 01/29/2021 10:41 AM CDT 01/29/2021 5:28 PM CDT Narrative [facility] - 02/03/2021 11:04 AM CDT HPV types 16, 18, 31, 33, 35, 39, 45, 51, 52, 56, 58, 59, 66 and 68 DNA were undetectable or below the pre-set threshold. Methodology: [employer] 4800 HPV Test Mariana Bryan DO MICROBIOLOGY Performing Organization Address City/[facility]/ZIP Co de Phone Number [facility] [address] [place] [address], from Last 3 Months or Most Recently Relevant to Health Maintenance Advance Directives * Full Code (Latest Code Status on File) Date Activated Date Inactivated Comments 10/06/2022 10:07 AM 10/06/2022 7:23 PM Question Answer Comments Code Status Discussion: Discussed * Full Code Date Activated Date Inactivated Comments 03/15/2018 5:02 PM 03/18/2018 1:58 PM * Full Code Date Activated Date Inactivated Comments 07/01/2014 9:11 AM 07/03/2014 11:30 AM Care Teams Blow Mold Machine Operator Relationship Specialty Start Date End Date Mariana Bryan DO [address] [place] [address] PCP - General Internal Medicine 03/28/20 Johnna Ram, EDENILSON [address] [place] [address] Endocrinology Nurse Practitioner - Adult 10/01/21
--- OUTSIDE RECORDS SUMMARY | 2024-04-10 18:21 | XMS_ITS | Clinical Summary ---
Author Organization [facility] Address [address] [place] [address] Care Team Providers Care Tile Presser Name Role Phone Unassigned, Provider Primary Care Provider Unava ilable Source Comments You are receiving this document as you are listed as the primary care provider,follow-up provider, or the patient has been referred to you for consultation.This is in compliance with the Medicare and[facility] EHR Incentive Program,which states Providers who transition their patient to another setting of careor provider of care or refers their patient to another provider of care shouldprovide summary care record for each transition of care or referral. [employer] Allergies No known active allergies Medications Medication Sig Dispensed Refills Start Date End Date Status omeprazole (AKA PRILOSEC) 40 MG capsule Take 40 mg by mouth daily (every 24 hours). 09/29/2011 Active fexofenadine (AKA KARLOS) 180 MG tablet Take 180 mg by mouth daily (every 24 hours). 09/29/2011 Active celecoxib (AKA CELEBREX) 200 MG capsule Take 200 mg by mouth. 09/29/2011 Active etonogestrel (NEXPLANON) 68 MG implant Inject 1 Each subcutaneously. Active methocarbamol (ROBAXIN) 500 MG tabletIndications:Fibr omyalgia Take 1 Tablet by mouth 4 times a day. 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 02/01/2020 Myalgia 09/29/2011 Overview (01/19/2017): Myalgia and myositis, unspecified Fibromyalgia 09/29/2011 Depression 09/29/2011 Social History Tobacco Use Types Packs/Day Years Used Date Smoking Tobacco: Former Smokeless Tobacco: Never Alcohol Use Standard Drinks/Week Comments No 0 (1 standard drink = 0.6 oz pur e alcohol) Sex and Gender Information Value Date Recorded Sex Assigned at Female 05/28/2021 12:54 PM COST REDUCTION ENGINEER Gender Identity Female 05/28/2021 12:54 PM COST REDUCTION ENGINEER Sexual Orientation Not on file Last Filed Vital Signs Vital Sign Reading Time Taken Comments Blood Pressure 102/64 09/29/2011 8:20 AM CDT Pulse 70 09/29/2011 8:20 AM CDT Temperature - - Respiratory Rate - - Oxygen Saturation - - Inhaled Oxygen Concentration - - Weight 85.3 kg (188 lb) 09/29/2011 8:20 AM CDT Height 167 cm (5' 5.75) 09/29/2011 8:20 AM CDT Body Mass Index 30.58 09/29/2011 8:20 AM CDT Plan of Treatment Health Maintenance Due Date Last Done Comments Cervical Cancer Screening Due 1989 Hep C Screening (Preventive Services) 1989 HIV Screening (Preventive Services) 2005 Adult Preventive Visit 2007 HepB (1) 02/03/2008 COVID-19 Vaccine ( - 2023-2 5 season) 2024 05/19/2021, 09/21/2020, 08/24/2020 Influenza (#1) 2024 05/18/2011 DTaP/Tdap/Td (4 - Tdap) 01/29/2031 01/30/20, 01/20/2011, 10/16/2002 Zoster/Shingles (1 of 2) 2039 HPV Vaccine Completed 12/07/2013, 10/04/2012, 08/01/2012 HepA Aged Out No longer eligi ble based on patient's age to complete this topic Hib Aged Out No longer eligi ble based on patient's age to complete this topic IPV (Polio) Aged Out No longer eligi ble based on patient's age to complete this topic Infant RSV Aged Out No longer eligi ble based on patient's age to complete this topic MCV4 Aged Out No longer eligi ble based on patient's age to complete this topic Pneumococcal Aged Out No longer eligi ble based on patient's age to complete this topic Care Teams Tile Presser Relationship Specialty Start Date End Date Unassigned, Provider [address] [place] [address] PCP - General 05/07/00
--- OUTSIDE RECORDS SUMMARY | 2024-04-10 18:21 | XMS_ITS | Clinical Summary ---
Author Organization [facility] Address [address] [place] [id number] Phone Care Team Providers Care Global Climate Change Analyst Name Role Phone Unavailable Primary Care Provider Unavailabl e Source Comments [employer] is fully rolled out on [employer]. Last update 11/01/08.[employer] Allergies Active Allergy Reactions Criticality Noted Date [...] Sex Assigned at Female 07/12/2023 3:33 PM LARRY OPERATOR Legal Sex Female 3:11 PM LARRY OPERATOR Gender Identity Female 07/12/2023 3:33 PM LARRY OPERATOR Sexual Orientation Straight 07/12/2023 3: 33 PM LARRY OPERATOR Last Filed Vital Signs Vital Sign Reading [...] 09/28/2023 11:46 AM CDT Plan of Treatment Health Maintenance Due Date Last Done Comments Dental Oral Exam 1989 Dental Prophylaxis 1989 Dental X-Ray: Bitewings 1989 Depression Management 1989 Periodontal Maintenance 2003 HEALTH MAINTENANCE PROTOCOL 02/03/2008 Imm: HepB (1 of 3 - 19+ 3-dose series) 02/03/2008 Imm: COVID-19 ( season) 2024 03/04/2022, 05/19/2021, 09/21/2020, Additional history exists Imm: Flu (#1) 01/29/2024 05/18/2011 PREVENTATIVE VISIT 07/01/2024 07/01/2023, 0 06/16/2022, 01/29/2021 Cervical Cancer Screening Age 30-65 01/29/2026 01/29/2021 Imm: DTaP/Tdap (4 - Td or Tdap) 01/29/2031 01/29/2021, 01/20/2011, 10/16/2002 Imm: Zoster (1 of 2) 2039 Imm: HPV Completed 12/07/2013, 12/2012, 08/01/2012 HIV Screening Completed 01/29/2021 Imm: Pneumonia Peds or At-Risk less than 65 years Aged Out 03/21/2023 No longer vicky gible based on patient's age to complete this topic Imm: HepA Aged Out No longer eligi ble based on patient's age to complete this topic Imm: Hib Aged Out No longer eligi ble based on patient's age to complete this topic Imm: Meningitis Aged Out No longer el igible based on patient's age to complete this topic Insurance [facility] [place] [address]
--- OUTSIDE RECORDS SUMMARY | 2024-04-10 18:22 | XMS_ITS ---
Author Organization [facility] Address [address] [place] [address] [address] [place] [address] Care Team Providers Care Sales And Marketing Representative Name Role Phone Mariana Bryan DO Primary Care Provider Edward Green Unavailable [phone] Steven Wolf MD Unavailable Unavailable Bassam Barton Unavailable [phone] REASON FOR VISIT 4 week Follow-up Encounters Encounter Location Date Provider Diagnosis [address] [facility] [address] [facility] [address] [place] [address] 04/05/2024 Bassam Barton Plan Of Treatment No Information Progress Notes * Roula GOMEZ ADOB:[birth year] (34 yo F)Acc No.[id number]:04/05/2024 Progress Notes Patient:?Rosalinda GOMEZa Vince Provider:?Bassam Barton PA-C :1990???Age:34 Y???Sex:Female D ate:04/05/2024 Phone: Address[address] [id number] Pcp:Mariana Bryan DO Subjective: * Chief Complaints: * ???1. 4 week Follow-up. * Medical History:? Objective: * Vitals:? Assessment: Plan: * Treatment: * Billing Information: * Visit Code:? * Procedure Codes:? * Electronic signature of Arturo Barton PA-C on 04/10/2024 at 06:21 PM SALES TEAM MEMBER Sign off status: Pending * Provider:?Bassam Barton PA-C Date:?2023 Generated for Mohamud koch/Jill/eTransmitting on:?04/10/2024 06:21 PM SALES TEAM MEMBER
--- OUTSIDE RECORDS SUMMARY | 2024-04-10 18:22 | XMS_ITS | Encounter Summary ---
Author Organization [facility] Address [address] [place] [address] Care Team Providers Care Help Desk Intern Name Role Phone Mariana Bryan DO Primary Care Provider [phone] Wan Syed MD Unavailable Encounter Details Date Type Department Care Team (Late st Contact Info) Description 03/12/2024 Community Care Management [facility] Community Care [address] [place] [address] Kalyani Cordova Social History Tobacco Use Types Packs/Day Years Used Date Smoking Tobacco: Former Cigarettes Q uit: 2015 Smokeless Tobacco: Never Alcohol Use Standard Drinks/Week Comments Not Currently 0 (1 standard drink = 0.6 oz pur e alcohol) Sex and Gender Information Value Date Recorded Sex Assigned at Female 05/10/2022 2:08 PM SOFTWARE QUALITY ENGINEER Gender Identity Female 05/10/2022 2:08 PM SOFTWARE QUALITY ENGINEER Sexual Orientation Straight 05/10/2022 2: 08 PM SOFTWARE QUALITY ENGINEER documented as of this encounter Plan of Treatment Not on file documented as of this encounter Visit Diagnoses Not on filedocumented in this encounter Care Teams Help Desk Intern Relationship Specialty Start Date End Date Mariana Bryan DO [address] [place] [address] PCP - General Family Medicine - 02/25/22 Wan Syed MD [address] [facility] [address] [place] [address] Neurology 04/02/22 documented as of this encounter
--- OUTSIDE RECORDS SUMMARY | 2024-04-10 18:22 | XMS_ITS | Referral Summary ---
Author Organization [facility] Address [address] [place] [address] Care Team Providers Care Station Cashier Name Role Phone Mariana Bryan DO Primary Care Provider [phone] Wan Syed MD Unavailable [phone] Encounters Date Type Department Care Team Description 03/12/2024 Community [facility] Community Care [address] [place] [address] Kalyani Cordova 03/08/2024 9:45 AM CDT Office Visit [facility] - [address] [place] [phone] Wan Syed MD Intractable chronic migraine with aura and without status migrainosus (Primary Dx); Neck pain from Last 3 Months Allergies Active Allergy Reactions Criticality Noted Date [...] (03/08/2024): Hypermobile Diagnosed August 2023; Dr. Allen (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 Immunizations Name Administration Dates Next Due HPV Quadrivalent 12/07/2013,10/04/2012, 3 Influenza (Fluzone MDV 2012-14) 6-35 Mos 011 Pfizer 12+ Yrs Bivalent COVI D Vaccine (finn cap) 03/04/2022 SPIKEVAX (Moderna) 12+ Yrs M onovalent COVID Vaccine (sales engineer engineered products) 05/19/2021,09/21/2020,08/24/2020 Td adult absorbed PF (2 Lf) 10/16/2002 Tdap 01/29/2021,01/20/2011 Social History Tobacco Use Types Packs/Day Years Used Date Smoking Tobacco: Former Cigarettes Q uit: 2014 Smokeless Tobacco: Never Tobacco Cessation:Counseling Given: No Alcohol Use Standard Drinks/Week Comments Not Currently 0 (1 standard drink = 0.6 oz pur e alcohol) Sex and Gender Information Value Date Recorded Sex Assigned at Female 05/10/2022 2:08 PM INSTRUMENTATION ENGINEER Gender Identity Female 05/10/2022 2:08 PM INSTRUMENTATION ENGINEER Sexual Orientation Straight 05/10/2022 2: 08 PM INSTRUMENTATION ENGINEER Last Filed Vital Signs Vital Sign Reading Time Taken Comments Blood Pressure 122/82 05/18/2022 2:10 PM INSTRUMENTATION ENGINEER Pulse 80 05/18/2022 2:10 PM INSTRUMENTATION ENGINEER Temperature - - Respiratory Rate 14 09/23/2023 11:04 AM CDT Oxygen Saturation - - Inhaled Oxygen Concentration - - Weight 111.1 kg (245 lb) 09/23/2023 11:04 AM CDT Height 167.6 cm (5' 6) 09/23/2023 11:04 AM CDT Body Mass Index 39.54 09/23/2023 11:04 AM CDT Plan of Treatment Not on file Care Teams Station Cashier Relationship Specialty Start Date End Date Mariana Bryan DO [address] [place] [address] PCP - General Family Medicine - 02/25/22 Wan Syed MD [address] [facility] [address] [place] [address] Neurology 04/02/22
--- OUTSIDE RECORDS SUMMARY | 2024-04-10 18:22 | XMS_ITS | Patient Health Record ---
Author Organization [facility] Address [address] [place] [address] [address] [place] [address] Care Team Providers Care Staff Software Engineer Name Role Phone Mariana Bryan DO Primary Care Provider UnavailEdward Gomez Unavailable [phone] Steven Wolf MD Unavailable Unavailable Ajith Lynn Unavailable [phone] Bassam Barton Unavailable [phone] Allergies Allergen (clinical drug ingredient) Drug/Non Drug Allergy documented on EMR Reaction Allergy Type Onset Date Status Cat dander Cats (uncoded) Hives, headache, sneezing, itching Allergy Active Dairy (uncoded) Hives, vomiting, headache Allergy Active galcanezumab Emgality (uncoded) Hives, headac he, rash, Allergy Active omeprazole Omeprazole (uncoded) Shortness of breath Allergy Active pantoprazole pantoprazole (uncoded) Shortness of breath Allergy Active Perfume Perfume (uncoded) Short of breat h, migraine, loss of voice Allergy Active Strong chemicals (uncoded) Short of breath, migraine, loss of voice Allergy Active Reason For Referral Reason REHAB *PHYSICIAN SOILA NAZARIO PMR/OCC MED Please evaluate and treat the patients neck, mid-low back, and overall dispersed body pain. Please call the patient to schedule [phone]. Diagnosis 1 Cervicalgia (M54.2) Referral Organization [facility] Referring Provider First Name Bassam Referring Provider Last Name Mick Referring Provider Speciality Physician Cake Wrapper Referred Organization [facility] Referred Provider Arline Petit Referred Address [address] [facility] [address], [place],[address],[place] Referred Provider Specialty Rehabilitati on General Notes Jenna Ochoa 03/02/20 24 08:27:49 AM >BCBS no PA req. OK to schedule, Jyoti Pennington 03/02/2024 11:03:07 AM >Assigned TE to Ref 1 to sched consult Referral Priority Routine Medications Medication SIG (Take, Route, Frequency, Duration) Notes Start Date End Date Status Ashwagandha Active tiZANidine HCl 4 MG Oral for 30 Days Active Pepcid 20 MG 2 tabs Orally Once a day Active Excedrin Migraine 250-250-65 MG 1 tablet Orally As needed Active Daniela Active Tizanidine HCl 4mg A ctive Magnesium Oxide 250 MG 1 tablet as neede d Orally Once a day Active Propranolol HCl 10 MG 2 tabs Orally a day Active hydrOXYzine HCl 25 MG Oral for 6 Days Active Levothyroxine Sodium 175 MCG Oral for 30 Days Active Riboflavin 100 MG 4 tablets Orally Onc e a day Active Medrol 4 MG as directed on Medro l package Orally 1 pack for 6 days 03/01/2024 Active Topamax 25 MG 1 to 2 tablet Orally Twice a day (start 1 tab at bedtime x7 days, increase by 1 tab/day weekly as tolerable up to 2 tabs twice per day.) for 30 days 03/01/2024 Active Social History Tobacco Use: Social History Observation Description Date Details (start date - stop date) Never Smoker NA - NA Tobacco Control (Standard) Question Answer Notes Tobacco use: Nonsmoker AUDIT-C (Standard) Question Answer Notes Did you have a drink containing alcohol in the p ast year? No Points 0 Interpretation Negative Problems Problem Type SNOMED Code ICD Code Onset Dates Problem Status W/U Status Risk Notes Problem Chronic pain (37533529) Other chronic pain (G89.29) Active confirmed Problem Pain in thoracic spine (120772933) Pain in thoracic spine (M54.6) Active confirmed Problem Cervicalgia (28873519) Cervicalgia (M54.2) Active confirmed Problem Low back pain (856497515) Low back pain, unspecified (M54.50) Active confirmed Vital Signs Blood pressure diastolic 68 mm Hg 03/01/2024 Height 5ft 6in in 03/01/2024 Blood pressure systolic 130 mm Hg 03/01/2024 Weight 247 lbs 03/01/2024 BMI 39.86 kg/m2 03/01/2024 Encounters Encounter Location Date Provider Diagnosis [facility] [address] [place] [address] 03/01/2024 Edward Valentine Cervicalgia M54.2 ; Pain in thoracic spine M54.6 ; Low back pain, unspecified M54.50 and Other chronic pain G89.29 [facility] [address] [place] [address] [address] [place] [address] 02/08/2024 Ajith Lynn [facility] [address] [place] [address] [address] [place] [address] 03/02/2024 Edward Valentine [facility] [address] [place] [address] [address] [place] [address] 03/18/2024 Edward Valentine Assessments Encounter Date Diagnosis (ICD Code) Assessment Notes Treatment Notes Treatment Clinical Notes 03/01/2024 Pain in thoracic spine (ICD-10 - M54.6) 03/01/2024 Cervicalgia (ICD-10 - M54.2) 03/01/2024 Low back pain, unspecified (ICD-10 - M54.50) 03/01/2024 Other chronic pain (ICD-10 - G89.29) Roula presents to the clinic for an evaluation regarding her chronic neck, mid-low back, and overall dispersed body pain. I have reviewed her symptoms and current medications. I checked the [facility] database and I did not find any inconsistencies. I reviewed her lumbar MRI and discussed the findings with her. She has consented to signing a ALIA to [facility] in order to obtain her injection records. I will refer her to [facility] in order to strength and condition her neck and mid-low back. I advised her to establish with a psychiatrist as she does have a history of suicidal ideation. I will consider bilateral ONBs and bilateral SIJ injections to address the tenderness over the corresponding areas. Regarding medications, I have started her on MDP to address her pain flare. I will also start her on Topamax 25MG BID and discussed the titration instructions with her. I will consider LDN and Lyrica in the future, but her psychiatrist would need to prescribe her Lyrica due to her history of suicidal ideation. This treatment plan was reviewed with the patient, and she was agreeable. She will return in five weeks for further evaluation or sooner if needed. I will continue to monitor her progress, adjusting her treatment plan as necessary. Plan: 1. Reviewed lumbar MRI 2. ALIA to [facility] 3. Refer to Charli Maldonadoab - MD consult 4. Advised to establish with a psychiatrist 5. Consider bilateral ONB 6. Consider bilateral SIJ injection 7. Start MDP 8. Start Topamax 25MG BID 9. Consider LDN 10. Consider Lyrica - hx of suicidal ideation, psychiatrist will need to prescribe 11. Follow up in 5 weeks Discharge instructions reviewed verbally. Discussed the risks/benefits of prescribed medication. The patient was instructed to return to the office as scheduled and call with any questions, problems or concerns. Lumbar MRI ([facility])Exam Date: 08/12/2023IMPRESSI ON: 1. Anterior posterior fusion at L4-S1 with laminectomy changes at L4-L5 through L5-S1 and decompression of the spinal canal.2. At L5-S1, there are severe bilateral neural foraminal stenosis. 3. At L3-L4, there is moderate loss of disc space height with moderate Modic type I degenerative endplate changes involving the apposing endplates and mild to moderate spinal canal stenosis. 03/01/2024 Other I, Ronit trinidad, am serving as a scribe to document services personally performed by Bassam Barton PA-C, based upon my observations and the provider's statements to me. All documentation has been reviewed by the aforementioned JOE as well as Edward Valnetine MD, prior to being entered into the official medical record. I, Edward Valentine MD attest that the above named individual is acting in scribe capacity, has observed Bassam Barton's performance of the services and has documented them in accordance with her direction. The documentation recorded by the scribe accurately reflects the service Bassam Barton PA-C, personally performed and the decisions made by her. Thank you very much Dr. Steven oWlf for your kind referral of Roula to our clinic and for allowing me to participate in her care. Please feel free to contact me with any questions or concerns regarding her care plan. Plan Of Treatment No Information Insurance Providers Payer Name Payer Address Payer Phone Subscriber Number Group Number Insured Name Patient Relationship to Insured Coverage Start Date Coverage End Date [facility] [place] [employer] [place] PMAP [address] [address] [place] [address] [phone] [id number] Roula Gomez Self - patient is the insured [facility] [address] [address] [place], [place] [phone] [id number] Roula Gomez Self - patient is the insured Medical (General) History Medical History History ICD Code Fibromyaglia Ehler Danlos Chronic fatigue syndrome Chronic migraine Mami's Thyroid cancer - 2022 Depression Histamine Intolerance Orthostatic hypertension with tachycardi a symptoms Surgical History Surgery Date(Month/Year) Spinal cord stimulator removal 3 thyroidectomy 10/06/2022 Spinal cord stimulator 12/16/2022 Spinal fusion L4-S1 02/27/2018 Left foot reconstruction 12/21/2013 Right foot reconstruction 07/19/2014
--- OUTSIDE RECORDS SUMMARY | 2024-04-10 18:22 | XMS_ITS ---
Author Organization [facility] Address [address] [place] [address] [address] [place] [address] Care Team Providers Care Access Representative Name Role Phone Mariana Bryan DO Primary Care Provider Edward Green Unavailable [phone] Maryann CHILDS, Steven Unavailable Unavailable REASON FOR VISIT RUL Encounters Encounter Location Date Provider Diagnosis [facility] [address] [place] [address] [address] [place] [address] 03/02/2024 Edward Valentine Plan Of Treatment No Information Progress Notes * Roula GOMEZ ADOB:[birth year] (34 yo F)Acc No.[id number]:03/02/2024 Patient:?Roula GOMEZ :1990???Age:34 Y???Sex:Female Phone: Address:[place] [address], [address] * true * Date:? Generated for Mohamud koch/Jill/eTransmitting on:?04/10/2024 06:21 PM INSIDE PHONE SALES
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
--- OUTSIDE RECORDS SUMMARY | 2024-04-10 18:22 | XMS_ITS ---
Author Organization [facility] Address [address] [place] [address] [address] [place] [address] Care Team Providers Care Jumpbasting Machine Operator Name Role Phone Mariana Bryan DO Primary Care Provider Edward Green Unavailable [phone] Maryann CHILDS, Steven Unavailable Unavailable REASON FOR VISIT Cancel Appointment Request Encounters Encounter Location Date Provider Diagnosis [facility] [address] [place] [address] [address] [place] [address] 03/18/2024 Edward Valentine Plan Of Treatment No Information Progress Notes * Roula GOMEZ ADOB:[birth year] (34 yo F)Acc No.[id number]:03/18/2024 Patient:?Roula GOMEZ :1990???Age:34 Y???Sex:Female Phone: Address:[place] [address], [address] * true * Date:? Generated for Mohamud koch/Jill/eTransmitting on:?04/10/2024 06:21 PM CONTRACT TECHNICIAN
[2024-04-10 18:30] LABS: Basophils Absolute Auto 0.02 K/uL (0.00-0.30); Basophils Percent Auto 0.2 % (0.0-3.0); Eosinophils Absolute Auto 0.11 K/uL (0.00-0.50); Hematocrit 38.4 % (33.0-51.0); Hemoglobin* 12.9 gm/dL (12.0-16.0); Immature Granulocytes Abs Auto 0.02 K/uL (0.00-0.30); Immature Granulocytes Pct Auto 0.2 %; Lymphocytes Percent Auto 19.5 % (20-44); Mean Corpuscular HGB Conc 34 gm/dL (32-36); Mean Corpuscular Hemoglobin 30 pg (26-34); Mean Corpuscular Volume 89 fL (80-100); Monocytes Percent Auto 7.6 % (0.0-11.0); Neutrophils Absolute Auto 7.67 K/uL (1.7-7.0); Neutrophils Percent Auto 71.5 % (42.0-72.0); Platelet Count* 288 K/uL (140-440); RDW Coefficient of Variation % 12.3 % (11.5-15.5); Red Blood Count 4.32 m/uL (4.00-5.20); White Blood Count* 10.73 K/uL (4.50-11.00)
[2024-04-10] MEDS: OXYCODONE 5 MG TABLET PO (18:33)
[2024-04-10] MEDS: CLINDAMYCIN 150 MG CAPSULE 300 MG PO (18:33)
[2024-04-10 18:47] LABS: Slide Review Reflex No
[2024-04-10 18:52] LABS: Chloride* 101 mmol/L (96-114); Potassium* 4.4 mmol/L (3.6-5.1); Sodium* 135 mmol/L (135-149)
[2024-04-10 18:55] LABS: Anion Gap 11 mEq/L (7-15); Carbon Dioxide* 23 mmol/L (20-32); Creatinine* 0.7 mg/dL (0.5-1.5); Est. Creatinine Clearance* 105.01; Estimated Glomerular Filt Rate 116 ml/min
[2024-04-10 18:56] LABS: Blood Urea Nitrogen* 11 mg/dL (5-24); Calcium* 8.9 mg/dL (8.4-10.6); Glucose* 99 mg/dL (60-115)
[2024-04-10 19:18] LABS: HCG Qualitative Serum* Negative (Negative)
== END 2024-04-10 20:36 | disposition home or self-care (01) ==
PROVIDERS: Emergency Provider Emergency Medicine; PCP Family Medicine
DX: L03.211 Cellulitis of face (principal); K04.7 Periapical abscess without sinus
CPT/HCPCS: 36415; 70491; 80048; 84703; 85025; 99283; 99284; 99285; A9270; Q9967

== ENCOUNTER 2025-01-04 10:36 | Day surgery (SDC) | payer BC, SELFPAY ==
[2025-01-04] VITALS (13 sets, daily range): BP systolic 112–136; BP diastolic 74–95; PULSE 70–94; RESP 13–16; TEMP 36.3–37.4; O2SAT 97–100; BMI 41.5
[2025-01-04 11:09] LABS: Ur HCG Qualitative* Negative (Negative)
[2025-01-04] MEDS: OXYMETAZOLINE 0.05% NASAL SPRAY 2 SPRAY NOSTRIL-B (11:27)
[2025-01-04] MEDS: SODIUM CHLORIDE 0.9 % (FLUSH) 10 ML SYRINGE IVF (11:28)
[2025-01-04] MEDS: LACTATED RINGERS 1000 ML 1,000 ML 100 ML IV (11:30)
[2025-01-04] MEDS: BUPIVACAINE 0.5%/EPINEPHRINE 0.9 MG (30.9 ML) INJECTION (12:04)
[2025-01-04] MEDS: AYR SALINE NASAL GEL 1 APPLIC NOSTRIL-B (12:10)
[2025-01-04] MEDS: MUPIROCIN 1 GM PACKET 1 APPLIC TOPICAL (12:11)
--- NOTE | 2025-01-04 12:48 | W.PM.ENTPROC ---
Procedure Note Date of procedure: 01/04/25 Procedure: Preop diagnosis bilateral recurrent chronic maxillary sinusitis, chronic right anterior ethmoid sinusitis, deviated septum nasal obstruction inferior turbinate hypertrophy Postoperative diagnosis same Procedure endoscopic image guided bilateral maxillary antrostomies with tissue removal, endoscopic right anterior ethmoidectomy, nasal septoplasty, submucous partial resection inferior turbinates Under general tracheal anesthesia patient was prepped and draped usual fashion the image guidance system registered. The nose was decongested injected. A vertical incision was made in the septum anterior to the left area 4 deflection. The mucosa on either side was elevated and deflected portion resected a piece returned to intraseptal space. A stab incision was made anterior other inferior turbinate a tunnel created with a [place] dissector. A very conservative anterior submucous resection was performed the Coblation was used for hemostasis and to cauterize intramurally along the inferior 10% this was repeated on the left side in identical fashion On the left side the inferior quarter of the uncinate process was taken down exposing natural ostium to maxillary sinus this was occluded by polyp tissue which was removed and additional tissue removed from the floor of the sinus. This was repeated on the right side in identical fashion. The anatomy was somewhat distorted on the right side. In addition the anterior ethmoid was opened and polypoid mucosa removed from the anterior ethmoid segment on the right. Merocel packing was placed in each side of the nose the was 1st coated in Bactroban this was put over the septal flaps on the left side and then in from the middle meatus to the septal flap on the right side. The patient procedure was taken recovery in satisfactory condition. Blood loss was less than 20 mL. Surgeon: Marlo Barrett MD
--- NOTE | 2025-01-04 12:54 | P.ANES_ITS ---
Anesthesia Charges Start Date/Time Anesthesia Start Date: 01/04/25 Anesthesia Start Time: 11:55 Stop Date/Time Anesthesia Stop Date: 01/04/25 Anesthesia Stop Time: 12:50 Coding CPT Codes CPT Codes: ANESTH NOSE/SINUS SURGERY - 57332 ([id number]) QX - APARTMENT HOTEL MANAGER SVC W/ MD MED DIRECTION, QK - BILINGUAL NANNY 2-4 CNCRNT ANES PROC, P3 - PATIENT W/SEVERE SYS DISEASE
--- NOTE | 2025-01-04 12:54 | W.ANESCHARGE ---
Anesthesia Charges Start Date/Time Anesthesia Start Date: 01/04/25 Anesthesia Start Time: 11:55 Stop Date/Time Anesthesia Stop Date: 01/04/25 Anesthesia Stop Time: 12:50 Coding CPT Codes CPT Codes: ANESTH NOSE/SINUS SURGERY - 01162 ([id number]) QX - COMMUNICATION EQUIPMENT REPAIRER SVC W/ MD MED DIRECTION, QK - GRANITE POLISHER MACHINE 2-4 CNCRNT ANES PROC, P3 - PATIENT W/SEVERE SYS DISEASE
--- NOTE | 2025-01-04 12:55 | P.ANES_ITS ---
Anesthesia Charges Start Date/Time Anesthesia Start Date: 01/04/25 Anesthesia Start Time: 11:55 Stop Date/Time Anesthesia Stop Date: 01/04/25 Anesthesia Stop Time: 12:50 Coding CPT Codes CPT Codes: ANESTH NOSE/SINUS SURGERY - 67429 ([id number]) P3 - PATIENT W/SEVERE SYS DISEASE, QK - DOOR OPERATOR 2-4 CNCRNT ANES PROC, QX - LICENSED GUIDE SVC W/ MD MED DIRECTION
--- NOTE | 2025-01-04 12:55 | W.ANESCHARGE ---
Anesthesia Charges Start Date/Time Anesthesia Start Date: 01/04/25 Anesthesia Start Time: 11:55 Stop Date/Time Anesthesia Stop Date: 01/04/25 Anesthesia Stop Time: 12:50 Coding CPT Codes CPT Codes: ANESTH NOSE/SINUS SURGERY - 82918 ([id number]) P3 - PATIENT W/SEVERE SYS DISEASE, QK - SENIOR APPLICATIONS DEVELOPER 2-4 CNCRNT ANES PROC, QX - INVOICING MACHINE OPERATOR SVC W/ MD MED DIRECTION
[2025-01-04] MEDS: IBUPROFEN 200 MG TABLET PO (13:59)
[2025-01-04] MEDS: ACETAMINOPHEN 325 MG TABLET PO (13:59)
== END 2025-01-04 14:15 | disposition home or self-care (01) ==
LOC: OR 10:38
PROVIDERS: Anesthesiology; PCP Student in an Organized Health Care Education/Training Program; Visit Provider Otolaryngology
PROC: (CPT 31231; principal; 2025-01-04 12:00)
DX: J32.0 Chronic maxillary sinusitis (principal); J32.2 Chronic ethmoidal sinusitis; J34.2 Deviated nasal septum; J34.3 Hypertrophy of nasal turbinates
CPT/HCPCS: 31267; 31254; 30520; 30140; 00160; 81025; 88305; 88311; A9270; J0330; J0461; J1100; J2405; J2704; J3010; J7120